=== PATIENT | male | born 1995 | race Caucasian/White ===

== ENCOUNTER 2017-08-13 23:01 | Emergency (ER) | payer SELFPAY ==
[~2017-08-13] VITALS: Ht 177.8 cm; Wt 78.0 kg
[~2017-08-13 23:01] MED LIST: CIPR-9 PO
[2017-08-13 23:40] VITALS: BP 130/90; PULSE 85; RESP 15; TEMP 98.5; O2SAT 96
--- NOTE | 2017-08-14 00:14 | PD ---
HPI Chief Complaint: Psychiatric Symptoms Time Seen by Provider: 23:49 Travel History International Travel<30 days: No Contact w/Intl Traveler<30days: No Traveled to known affect area: No History of Present Illness HPI 22-year-old white male presents to emergency department under Justice act by PD. The patient has a history of HIV, substance abuse and has recently moved to the area one month ago from [place]. Prior to that he had been living in [place] on the [address]. He states that he has had not taken his HIV medicines in the past 8 days. He had been on a alcohol and drug binge and had recently moved out of his home into a senior living house for substance abuse. He was kicked out today after taking an [id number] medication which reportedly was against their policy. The patient allegedly had gone back to his 's house with her child and attempted to hang himself. He states the rope had broken. He also states that he attempted to throw himself out of traffic car had stopped. He had lastly attempted to shoot himself with a shotgun. He states that he had put the gun in his mouth but it was taken away from him by his family. The patient admits to feeling depressed and having suicidal thoughts. His allegedly has also relapsed on methamphetamine. Patient states that he has not been feeling well for the past week. He has had cough, congestion, weakness and general malaise. He has occasional blood-tinged sputum. He does continue to smoke. He also had reportedly been smoking methamphetamine earlier in the week. Denies any fever or chills. No nausea vomiting. No abdominal pain or urinary symptoms. He does not know what his CD4 or viral load is. He does not have a doctor here in town. He states that he had moved to the area one month ago. He had been getting his medicines through his sister who lives in [place]. She had been mailing him his medications. Patient denies any toxic ingestions. No homicidal ideation. [facility] Past Medical History Narrative Medical ADHD, anxiety, depression, HIV positive, substance abuse, orthopedic fractures ADHD: Yes (YOUNGER AGE) Anxiety: Yes Depression: Yes Cancer: Yes (STATES NOT SURE YET WHAT TYPE,RECENT DX) Coronary Artery Disease: Yes (" heart problems as an infant. Heart Murmur. ) Diabetes: No Diminished Hearing: No Immune Disorder: Yes (HIV) Immunizations Current: Yes (school shots utd.) Tetanus Vaccination: < 5 Years Past Surgical History Narrative Surgical Orthopedic surgeries Social History Alcohol Use: Yes Tobacco Use: Yes Substance Use: Yes Allergies-Medications (Allergen,Severity, Reaction): Coded Allergies: buspirone (Unverified Allergy, Severe, Anaphylaxis, 06/05/17) HEART RACES, TURNS BLUE, PASSES OUT iodine (Unverified Allergy, Severe, RASH/WELTS/ANYPHYLAXIS, 06/05/17) lorazepam (Unverified Allergy, Severe, Anaphylaxis, 06/05/17) HEART RACES, TURNS BLUE, PASSES OUT potassium iodide (Unverified Allergy, Severe, RASH/WELTS/ANYPHYLAXIS, 06/05) povidone-iodine (Unverified Allergy, Severe, RASH/WELTS/ANYPHYLAXIS, ) sodium iodide (Unverified Allergy, Severe, RASH/WELTS/ANYPHYLAXIS, 06/05/17 ) sodium iodide (Unverified Allergy, Severe, RASH/WELTS/ANYPHYLAXIS, 06/05/17 ) Reported Meds & Prescriptions Reported Meds & Active Scripts Active Review of Systems General / Constitutional: No: Fever Eyes: No: Visual changes HENT: No: Headaches Cardiovascular: No: Chest Pain or Discomfort Respiratory: Positive: Cough, Shortness of Breath Gastrointestinal: No: Abdominal Pain Genitourinary: No: Dysuria Musculoskeletal: Positive: Myalgias, Weakness, Pain Skin: No Rash Neurologic: Positive: Weakness, No: Paresthesia Psychiatric: Positive: Depression, Suicidal Ideations, Mood Disorder, Substance Abuse, No: Disorder of Thought, Homicidal Ideation Endocrine: No: Polydipsia Hematologic/Lymphatic: No: Easy Bruising Physical Exam Narrative GENERAL: Well-nourished, well-developed patient. SKIN: Warm and dry. HEAD: Normocephalic and atraumatic. EYES: No scleral icterus. No injection or drainage. ENT: No nasal drainage noted. Mucous membranes pink. Airway patent. NECK: Supple, trachea midline. Moves head freely without obvious discomfort. CARDIOVASCULAR: Regular rate and rhythm without murmurs, gallops, or rubs. RESPIRATORY: Breath sounds equal bilaterally. Few forced expiratory wheezes with occasional rhonchi. No accessory muscle use. GASTROINTESTINAL: Abdomen soft, non-tender, nondistended. EXTREMITIES: No cyanosis or edema. BACK: Nontender without obvious deformity. No CVA tenderness. NEURO: Patient is alert and oriented. no sensorimotor deficits. Nonfocal. Normal speech. PSYCH: No delusions. No auditory or visual hallucinations. Data Data Last Documented VS Vital Signs Date Time Temp Pulse Resp B/P (MAP) Pulse Ox O2 Delivery O2 Flow Rate FiO2 08/13/17 23:40 98.5 85 15 130/90 (103) 96 Orders Orders Complete Blood Count With Diff (08/14/17 00:01) Comprehensive Metabolic Panel (08/14/17 00:01) Psych Screen (08/14/17 00:) Drug Screen, Random Urine (08/14/17 00:) Alcohol (Ethanol) (08/14/17 00:01) Salicylates (Aspirin) (08/14/17 00:01) Tylenol (Acetaminophen) (08/14/17 00:01) Chest, Single Ap (08/14/17 00:01) Labs Laboratory Tests Test 08/14/17 00:30 White Blood Count 7.9 TH/MM3 Red Blood Count 4.31 MIL/MM3 Hemoglobin 13.6 GM/DL Hematocrit 39.6 % Mean Corpuscular Volume 91.9 FL Mean Corpuscular Hemoglobin 31.6 PG Mean Corpuscular Hemoglobin Concent 34.4 % Red Cell Distribution Width 13.7 % Platelet Count 225 TH/MM3 Mean Platelet Volume 8.7 FL Neutrophils (%) (Auto) 64.0 % Lymphocytes (%) (Auto) 28.1 % Monocytes (%) (Auto) 6.6 % Eosinophils (%) (Auto) 1.1 % Basophils (%) (Auto) 0.2 % Neutrophils # (Auto) 5.1 TH/MM3 Lymphocytes # (Auto) 2.2 TH/MM3 Monocytes # (Auto) 0.5 TH/MM3 Eosinophils # (Auto) 0.1 TH/MM3 Basophils # (Auto) 0.0 TH/MM3 CBC Comment DIFF FINAL Differential Comment Blood Urea Nitrogen 14 MG/DL Creatinine 0.74 MG/DL Random Glucose 80 MG/DL Total Protein 7.6 GM/DL Albumin 3.8 GM/DL Calcium Level 8.7 MG/DL Alkaline Phosphatase 91 U/L Aspartate Amino Transf (AST/SGOT) 20 U/L Alanine Aminotransferase (ALT/SGPT) 17 U/L Total Bilirubin 0.3 MG/DL Sodium Level 139 MEQ/L Potassium Level 3.8 MEQ/L Chloride Level 106 MEQ/L Carbon Dioxide Level 28.3 MEQ/L Anion Gap 5 MEQ/L Estimat Glomerular Filtration Rate 130 ML/MIN Salicylates Level 2.8 MG/DL Acetaminophen Level LESS THAN 2.0 MCG/ML Ethyl Alcohol Level LESS THAN 3 MG/DL MDM Medical Decision Making Medical Screen Exam Complete: Yes Emergency Medical Condition: Yes Medical Record Reviewed: Yes Interpretation(s) Laboratory Tests Test 08/14/17 00:30 White Blood Count 7.9 TH/MM3 Red Blood Count 4.31 MIL/MM3 Hemoglobin 13.6 GM/DL Hematocrit 39.6 % Mean Corpuscular Volume 91.9 FL Mean Corpuscular Hemoglobin 31.6 PG Mean Corpuscular Hemoglobin Concent 34.4 % Red Cell Distribution Width 13.7 % Platelet Count 225 TH/MM3 Mean Platelet Volume 8.7 FL Neutrophils (%) (Auto) 64.0 % Lymphocytes (%) (Auto) 28.1 % Monocytes (%) (Auto) 6.6 % Eosinophils (%) (Auto) 1.1 % Basophils (%) (Auto) 0.2 % Neutrophils # (Auto) 5.1 TH/MM3 Lymphocytes # (Auto) 2.2 TH/MM3 Monocytes # (Auto) 0.5 TH/MM3 Eosinophils # (Auto) 0.1 TH/MM3 Basophils # (Auto) 0.0 TH/MM3 CBC Comment DIFF FINAL Differential Comment Blood Urea Nitrogen 14 MG/DL Creatinine 0.74 MG/DL Random Glucose 80 MG/DL Total Protein 7.6 GM/DL Albumin 3.8 GM/DL Calcium Level 8.7 MG/DL Alkaline Phosphatase 91 U/L Aspartate Amino Transf (AST/SGOT) 20 U/L Alanine Aminotransferase (ALT/SGPT) 17 U/L Total Bilirubin 0.3 MG/DL Sodium Level 139 MEQ/L Potassium Level 3.8 MEQ/L Chloride Level 106 MEQ/L Carbon Dioxide Level 28.3 MEQ/L Anion Gap 5 MEQ/L Estimat Glomerular Filtration Rate 130 ML/MIN Salicylates Level 2.8 MG/DL Acetaminophen Level LESS THAN 2.0 MCG/ML Ethyl Alcohol Level LESS THAN 3 MG/DL Last 24 hours Impressions Chest X-Ray 08/14/17 0001 Signed Impressions: Service Date/Time: Monday, August 14, 2017 01:05 - CONCLUSION: No acute disease. Eric Montgomery MD Differential Diagnosis MDM: High Differential diagnoses: Schizophrenia, schizoaffective disorder, bipolar, anxiety, depression, adjustment reaction, mood disorder NOS, ODD, depressive disorder NOS, dementia, dementia with agitation, psychosis NOS, substance induced mood disorder, intermittent explosive disorder, Asperger syndrome, infection,electrolyte abnormality, malingering. Narrative Course Mental health screening discussed with the patient. Psychiatric screen ordered. The patient is been medically cleared. This is medical clearance for psychiatric admission, HIV Diagnosis Primary Impression: Medical clearance for psychiatric admission Additional Impression: HIV (human immunodeficiency virus infection) Condition: Stable Louie Young Aug 14, 2017 00:14
--- NOTE | 2017-08-14 00:47 | RADRPT ---
EXAM DATE/TIME: 08/14/2017 01:05 [facility] COMPARISON: No previous studies available for comparison. INDICATIONS : Cough. MEDICAL HISTORY : None. SURGICAL HISTORY : None. ENCOUNTER: Initial ACUITY: 2 weeks PAIN SCORE: 0/10 LOCATION: Bilateral chest FINDINGS: A single view of the chest demonstrates the lungs to be symmetrically aerated without evidence of mas s, infiltrate or effusion. The cardiomediastinal contours are unremarkable. Osseous structures are intact. CONCLUSION: No acute disease. Eric Montgomery MD on August 14, 2017 at 0:45 Board Certified Radiologist. This report was verified electronically.
[2017-08-14 00:57] LABS: AUTOMATED NEUTROPHIL # 5.1 TH/MM3 (1.8-7.7); BASOPHIL % 0.2 % (0.0-2.0); EOSINOPHIL # 0.1 TH/MM3 (0-0.4); EOSINOPHIL % 1.1 % (0.0-4.0); HEMATOCRIT 39.6 % (39.0-51.0); HEMOGLOBIN 13.6 GM/DL (13.0-17.0); LYMPH % 28.1 % (9.0-44.0); LYMPHOCYTE # 2.2 TH/MM3 (1.0-4.8); MEAN CELL VOLUME 91.9 FL (80.0-100.0); MEAN CORPUSCULAR HEMOGLOBIN 31.6 PG (27.0-34.0); MEAN CORPUSCULAR HGB CONC 34.4 % (32.0-36.0); MEAN PLATELET VOLUME 8.7 FL (7.0-11.0); MONO % 6.6 % (0.0-8.0); MONOCYTE # 0.5 TH/MM3 (0-0.9); PLATELET COUNT 225 TH/MM3 (150-450); RED BLOOD COUNT 4.31 MIL/MM3 (4.50-5.90); RED CELL DISTRIBUTION WIDTH 13.7 % (11.6-17.2); WHITE BLOOD COUNT 7.9 TH/MM3 (4.0-11.0)
[2017-08-14 01:13] LABS: ALKALINE PHOSPHATASE 91 U/L (45-117); TOTAL BILIRUBIN ADULT 0.3 MG/DL (0.2-1.0); TOTAL PROTEIN 7.6 GM/DL (6.4-8.2)
[2017-08-14 01:17] LABS: ALBUMIN 3.8 GM/DL (3.4-5.0); ALT (GPT) 17 U/L (12-78); AST (GOT) 20 U/L (15-37); BICARBONATE 28.3 MEQ/L (21.0-32.0); BLOOD UREA NITROGEN 14 MG/DL (7-18); CALCIUM 8.7 MG/DL (8.5-10.1); CHLORIDE 106 MEQ/L (98-107); CREATININE 0.74 MG/DL (0.60-1.30); GLOMERULAR FILTRATION RATE 130 ML/MIN (>89); GLUCOSE,RANDOM 80 MG/DL (74-106); SODIUM (NA) 139 MEQ/L (136-145)
[2017-08-14 01:18] LABS: ACETAMINOPHEN LESS THAN 2.0 MCG/ML (10.0-30.0)
[2017-08-14 08:01] VITALS: BP 131/76; PULSE 75; RESP 16; O2SAT 98
[2017-08-14] MEDS ORDERED: TRIMEQ PO (08:03)
[2017-08-14 18:50] VITALS: BP 131/76; PULSE 75; RESP 16; O2SAT 98
--- NOTE | 2017-08-14 18:55 | PD ---
History of Present Illness Chief Complaint: Psychiatric Symptoms Time Seen by Provider: 18:15 Travel History International Travel<30 Days: No Contact w/Intl Traveler<30days: No Known affected area: No Legal Status Legal Status: Justice Act Justice Act Signed By: Amee Abreu History of Present Illness: History of Present Illness HPI 22-year-old white male with no previous psychiatric history and history of substance use disorder who presents to emergency department under Justice act by PD. The Justice act alleges that the patient threatened to put a gun in his mouth but could not pull the trigger. It also alleges that he wanted to get a hold of the arresting police weapon. The patient did not make any attempt at harming himself. He was monitored here for extended period of time and presented no behavioral concerns and no suicidality. The patient is seen in J pod. awake, alert, oriented.Speech is clear and logical. There is no evidence of any psychosis, no carole and no delusions. There is no objective clinical signs of depression or anxiety. He denies any suicidal or homicidal ideation. He states that last night he took a pill given to him by a peer at his sober living home. He then went to a staff and informed them of this. As per house rules he was released from the program x 72 hours. He states " I told them that because I didn't want to get kicked out of the program. I have done it before. I lied and I was hoping that they would feel sorry for me and let me stay. I don't have a shot gun since I am a felon. I have 2 sons and a and I do not want to kill myself. I know I can get back into the program in 72 hours". Patient is asking to be discharged as he does not want to loose his job and has to be to work tomorrow. His sponsor will pick him up if he is discharged. Telephone call to his , Fany at [phone]. She does not have any concerns for his safety if he were to be discharged. She states " He has a safe place to come home to". She also indicates that he does not own or have acces to any weapons.weapons". PFSH Past Medical History ADHD: Yes (YOUNGER AGE) Anxiety: Yes Depression: Yes Cancer: Yes (STATES NOT SURE YET WHAT TYPE,RECENT DX) Coronary Artery Disease: Yes (" heart problems as an infant. Heart Murmur. ) Diabetes: No Diminished Hearing: No Immune Disorder: Yes (HIV) Immunizations Current: Yes (school shots utd.) Tetanus Vaccination: < 5 Years Psychiatric History Psychiatric History Hx Psychiatric Treatment: States that he was treated inpatient at this facility approximately 4-6 years ago. History of Inpatient Treatment: No Social History . Was living at [facility]. Has 2 children. Works in [employer]. Hx Alcohol Use: Yes Hx Tobacco Use: Yes Hx Substance Use: Yes Substance Use Type: Marijuana Hx of Substance Use Treatment: Yes Family Psychiatric History Negative Allergies-Medications (Allergen,Severity, Reaction): Coded Allergies: buspirone (Unverified Allergy, Severe, Anaphylaxis, 06/05/17) HEART RACES, TURNS BLUE, PASSES OUT iodine (Unverified Allergy, Severe, RASH/WELTS/ANYPHYLAXIS, 06/05/17) lorazepam (Unverified Allergy, Severe, Anaphylaxis, 06/05/17) HEART RACES, TURNS BLUE, PASSES OUT potassium iodide (Unverified Allergy, Severe, RASH/WELTS/ANYPHYLAXIS, 06/05) povidone-iodine (Unverified Allergy, Severe, RASH/WELTS/ANYPHYLAXIS, ) sodium iodide (Unverified Allergy, Severe, RASH/WELTS/ANYPHYLAXIS, 06/05/17 ) sodium iodide (Unverified Allergy, Severe, RASH/WELTS/ANYPHYLAXIS, 06/05/17 ) Reported Meds & Prescriptions Reported Meds & Active Scripts Active Reported [Trimeq] Unknown Dose PO DAILY Review of Systems Except as stated in HPI: all other systems reviewed are Neg Mental Status Examination Appearance: Appropriate Consciousness: Alert Orientation: x4 Motor Activity: Normal gait Speech: Unremarkable Language: Adequate Fund of Knowledge: Adequate Attention and Concentration: Adequate Memory: Unremarkable Mood: Appropriate Affect: Appropriate Thought Process & Associations: Intact Thought Content: Appropriate Hallucination Type: None Delusion Type: None, Bizarre Suicidal Ideation: No Suicidal Plan: No Suicidal Intention: No Homicidal Ideation: No Homicidal Plan: No Homicidal Intention: No Insight: Fair Judgment: Impulsive MDM Medical Decision Making Medical Record Reviewed: Yes Assessment/Plan 22-year-old white male with no previous psychiatric history and history of substance use disorder who presents to emergency department under Justice act by PD. The Justice act alleges that the patient threatened to put a gun in his mouth but could not pull the trigger. It also alleges that he wanted to get a hold of the arresting police weapon. The patient did not make any attempt at harming himself. He was monitored here for extended period of time and presented no behavioral concerns and no suicidality. The patient is seen in J pod. awake, alert, oriented.Speech is clear and logical. There is no evidence of any psychosis, no carole and no delusions. There is no objective clinical signs of depression or anxiety. He denies any suicidal or homicidal ideation. He states that last night he took a pill given to him by a peer at his sober living home. He then went to a staff and informed them of this. As per house rules he was released from the program x 72 hours. He states " I told them that because I didn't want to get kicked out of the program. I have done it before. I lied and I was hoping that they would feel sorry for me and let me stay. I don't have a shot gun since I am a felon. I have 2 sons and a and I do not want to kill myself. I know I can get back into the program in 72 hours". Patient is asking to be discharged as he does not want to loose his job and has to be to work tomorrow. His sponsor will pick him up if he is discharged. Lift BA. Clear psychiatrically for discharge. He is future oriented with adequate protective f actors. He will return to the [facility] in 72 hours. Orders Orders Complete Blood Count With Diff (08/14/17 00:01) Comprehensive Metabolic Panel (08/14/17 00:01) Psych Screen (08/14/17 00:01) Drug Screen, Random Urine (08/14/17 00:01) Alcohol (Ethanol) (08/14/17 00:01) Salicylates (Aspirin) (10/24/17 00:01) Tylenol (Acetaminophen) (08/14/17 00:01) Chest, Single Ap (08/14/17 00:01) Diet Regular Basic (08/14/17 Breakfast) Diet Regular Basic (08/14/17 Lunch) Diet Regular Basic (08/14/17 Dinner) Results Vital Signs Date Time Temp Pulse Resp B/P (MAP) Pulse Ox O2 Delivery O2 Flow Rate FiO2 08/14/17 08:01 75 16 131/76 (94) 98 Room Air 08/13/17 23:40 98.5 85 15 130/90 (103) 96 Laboratory Tests Test 08/14/17 00:30 08/14/17 04:25 White Blood Count 7.9 Red Blood Count 4.31 Hemoglobin 13.6 Hematocrit 39.6 Mean Corpuscular Volume 91.9 Mean Corpuscular Hemoglobin 31.6 Mean Corpuscular Hemoglobin Concent 34.4 Red Cell Distribution Width 13.7 Platelet Count 225 Mean Platelet Volume 8.7 Neutrophils (%) (Auto) 64.0 Lymphocytes (%) (Auto) 28.1 Monocytes (%) (Auto) 6.6 Eosinophils (%) (Auto) 1.1 Basophils (%) (Auto) 0.2 Neutrophils # (Auto) 5.1 Lymphocytes # (Auto) 2.2 Monocytes # (Auto) 0.5 Eosinophils # (Auto) 0.1 Basophils # (Auto) 0.0 CBC Comment DIFF FINAL Differential Comment Blood Urea Nitrogen 14 Creatinine 0.74 Random Glucose 80 Total Protein 7.6 Albumin 3.8 Calcium Level 8.7 Alkaline Phosphatase 91 Aspartate Amino Transf (AST/SGOT) 20 Alanine Aminotransferase (ALT/SGPT) 17 Total Bilirubin 0.3 Sodium Level 139 Potassium Level 3.8 Chloride Level 106 Carbon Dioxide Level 28.3 Anion Gap 5 Estimat Glomerular Filtration Rate 130 Salicylates Level 2.8 Acetaminophen Level LESS THAN 2.0 Ethyl Alcohol Level LESS THAN 3 Urine Opiates Screen NEG Urine Barbiturates Screen NEG Urine Amphetamines Screen NEG Urine Benzodiazepines Screen NEG Urine Cocaine Screen NEG Urine Cannabinoids Screen POS Diagnosis Primary Impression: Adjustment disorder Additional Impression: Substance induced mood disorder Psychiatrically Cleared: Yes Med/ Other Pt Specific Info: No Meds Exist/No RX given Disposition: 01 DISCHARGE HOME Condition: Stable Problem Qualifiers Primary Impression: Adjustment disorder Qualified Codes: F43.25 - Adjustment disorder with mixed disturbance of emotions and conduct Y[place]iko [place] [facility] [place] Aug 14, 2017 18:55
== END 2017-08-14 20:53 | disposition home or self-care (01) ==
LOC: NEPD 23:01 → NEPJ 08-14 20:53
DX: F19.94 Other psychoactive substance use, unspecified with psychoactive substance-induced mood disorder (principal); F43.25 Adjustment disorder with mixed disturbance of emotions and conduct; B20 Human immunodeficiency virus [HIV] disease; R05 Cough; R53.1 Weakness; Z72.0 Tobacco use
CPT/HCPCS: 71010; 80053; 80307; 85025; 99284

== ENCOUNTER 2017-11-08 13:04 | Emergency (ER) | payer SELFPAY ==
[~2017-11-08 13:04] MED LIST changes: -CIPR-9 PO; +TRIMEQ PO
[2017-11-08 13:07] VITALS: BP 150/66; PULSE 99; RESP 20; TEMP 97.7; O2SAT 99
[2017-11-08] MEDS ORDERED: SODIUM CHLOR 0.9% 1000 ML INJ 1,000 ML IV ONE (13:45)
[2017-11-08 13:59] LABS: AUTOMATED NEUTROPHIL # 4.4 TH/MM3 (1.8-7.7); BASOPHIL % 0.2 % (0.0-2.0); EOSINOPHIL # 0.1 TH/MM3 (0-0.4); EOSINOPHIL % 1.2 % (0.0-4.0); HEMATOCRIT 39.3 % (39.0-51.0); HEMOGLOBIN 12.5 GM/DL (13.0-17.0); LYMPH % 17.9 % (9.0-44.0); MEAN CELL VOLUME 88.9 FL (80.0-100.0); MEAN CORPUSCULAR HEMOGLOBIN 28.1 PG (27.0-34.0); MEAN CORPUSCULAR HGB CONC 31.7 % (32.0-36.0); MEAN PLATELET VOLUME 7.9 FL (7.0-11.0); MONO % 5.9 % (0.0-8.0); MONOCYTE # 0.3 TH/MM3 (0-0.9); NEUT % 74.8 % (16.0-70.0); PLATELET COUNT 178 TH/MM3 (150-450); RED BLOOD COUNT 4.43 MIL/MM3 (4.50-5.90); RED CELL DISTRIBUTION WIDTH 12.1 % (11.6-17.2); WHITE BLOOD COUNT 5.8 TH/MM3 (4.0-11.0)
--- NOTE | 2017-11-08 13:59 | PD ---
HPI Chief Complaint: Numbness/Tingling Time Seen by Provider: 13:17 Travel History International Travel<30 days: No Contact w/Intl Traveler<30days: No Traveled to known affect area: No History of Present Illness HPI The patient is a 22-year-old male who presents to the emergency department for numbness and tingling of the upper extremities. The patient notes a one-week history of bilateral upper extremity numbness, states he will awaken in the morning and both of his hands will feel numb. The numbness climbs up the arms all way to the shoulders. He states they will continue to be numb for several minutes, sometimes up to 15-20 minutes and then he can feel the sensation returning, from the shoulders down to the hands. He also notes intermittent numbness of the legs, left greater than right. He denies any neck pain or headache associated with his symptoms. He does have a history of HIV, states he stopped taking medications 7 months ago secondary to financial issues. He is unsure if he is ever been diagnosed with an cathryn defining illness. The patient thinks his last viral load was almost undetectable, however, that was over 7 months ago. He is not currently followed by her primary physician. He denies any known history of neuropathy. He does note his hands feel weak when they are numb, however, when the numbness returns she is able to use his hands without difficulty. He also states he has had 2 episodes of syncope in the last 2 weeks where he will lean over and then wake up on the floor. He denies any trauma from the syncopal episodes and denies any chest pain, shortness of breath, nausea, vomiting, or palpitations. Symptoms are moderate, there are no alleviating or exacerbating factors. He does state he looked up on the Internet, states HIV can cause neuropathy. The patient denies any illicit IV drug use. PFSH Past Medical History ADHD: Yes (YOUNGER AGE) Anxiety: Yes Depression: Yes Cancer: Yes (STATES NOT SURE YET WHAT TYPE,RECENT DX) Coronary Artery Disease: Yes (" heart problems as an infant. Heart Murmur. ) Diabetes: No Diminished Hearing: No Immune Disorder: Yes (HIV) Immunizations Current: Yes (school shots utd.) Social History Alcohol Use: Yes Tobacco Use: Yes (1/2ppd) Substance Use: Yes Allergies-Medications (Allergen,Severity, Reaction): Coded Allergies: buspirone (Unverified Allergy, Severe, Anaphylaxis, 11/08/17) HEART RACES, TURNS BLUE, PASSES OUT iodine (Unverified Allergy, Severe, RASH/WELTS/ANYPHYLAXIS, 11/08/17) lorazepam (Unverified Allergy, Severe, Anaphylaxis, 11/08/17) HEART RACES, TURNS BLUE, PASSES OUT potassium iodide (Unverified Allergy, Severe, RASH/WELTS/ANYPHYLAXIS, 11/08) povidone-iodine (Unverified Allergy, Severe, RASH/WELTS/ANYPHYLAXIS, ) sodium iodide (Unverified Allergy, Severe, RASH/WELTS/ANYPHYLAXIS, 11/08/17 ) sodium iodide (Unverified Allergy, Severe, RASH/WELTS/ANYPHYLAXIS, 11/08/17 ) Reported Meds & Prescriptions Reported Meds & Active Scripts Active Review of Systems General / Constitutional: No: Fever Eyes: No: Visual changes HENT: No: Headaches, Neck Pain Cardiovascular: Positive: Syncope, No: Chest Pain or Discomfort, Palpitations, Irregular Rhythm, Tachycardia Respiratory: No: Shortness of Breath Gastrointestinal: No: Nausea, Vomiting, Abdominal Pain Musculoskeletal: Positive: Weakness Neurologic: Positive: Weakness, Syncope, Paresthesia, Sensory Disturbance Hematologic/Lymphatic: Positive: Other (history of HIV, not currently on medications) Physical Exam Narrative GENERAL: Awake, alert, nontoxic-appearing 22-year-old male who appears his stated age and is in no acute respiratory distress. SKIN: Focused skin assessment warm/dry. Multiple tattoos noted. HEAD: Atraumatic. Normocephalic. EYES: Pupils equal and round. 3 mm bilateral and reactive. ENT: No nasal bleeding or discharge. Mucous membranes pink and moist. NECK: Trachea midline. No JVD. No tenderness of the cervical or paracervical vertebral muscles. CARDIOVASCULAR: Regular rate and rhythm. No murmur appreciated. Heart rate in the 90s. RESPIRATORY: No accessory muscle use. Clear to auscultation. Breath sounds equal bilaterally. GASTROINTESTINAL: Abdomen soft, non-tender, nondistended. No rebound tenderness. MUSCULOSKELETAL: No obvious deformities. No clubbing. No cyanosis. No edema. Positive radial pulses bilateral. [place] strength is 5 out of 5. Flexion of the wrist is 5 out of 5. Extension of the elbows is 5 out of 5. Abduction of the shoulders is 5 out of 5. Shoulder shrug is 5 out of 5. Extension of the knees is 5 out of 5. NEUROLOGICAL: Awake and alert. No obvious cranial nerve deficits. Motor grossly within normal limits. Normal speech. Diminished sensation to soft touch of the anterior aspect of the left leg as well as over the radial aspect of the right arm, however, present upon soft touch over the ulnar and median nerve of the left and right hand. PSYCHIATRIC: Appropriate mood and affect; insight and judgment normal. Data Data Last Documented VS Vital Signs Date Time Temp Pulse Resp B/P (MAP) Pulse Ox O2 Delivery O2 Flow Rate FiO2 11/08/17 15:25 69 16 128/71 (90) 97 Room Air 11/08/17 13:07 97.7 Orders Orders Complete Blood Count With Diff (11/08/17 13:40) Comprehensive Metabolic Panel (11/08/17 13:40) Magnesium (Mg) (11/08/17 13:40) Creatine Kinase (Cpk) (11/08/17 13:40) Troponin I (11/08/17 13:40) Ct Cerv Spine W/O Contrast (11/08/17 ) Ct Brain W/O Iv Contrast(Rout) (11/08/17 ) Sodium Chlor 0.9% 1000 Ml Inj (Ns 1000 M (11/08/17 13:45) Potassium Chloride (Kcl) (11/08/17 14:30) Ketorolac Inj (Toradol Inj) (11/08/17 15:00) Electrocardiogram (11/08/17 13:23) Labs Laboratory Tests Test 11/08/17 13:50 White Blood Count 5.8 TH/MM3 Red Blood Count 4.43 MIL/MM3 Hemoglobin 12.5 GM/DL Hematocrit 39.3 % Mean Corpuscular Volume 88.9 FL Mean Corpuscular Hemoglobin 28.1 PG Mean Corpuscular Hemoglobin Concent 31.7 % Red Cell Distribution Width 12.1 % Platelet Count 178 TH/MM3 Mean Platelet Volume 7.9 FL Neutrophils (%) (Auto) 74.8 % Lymphocytes (%) (Auto) 17.9 % Monocytes (%) (Auto) 5.9 % Eosinophils (%) (Auto) 1.2 % Basophils (%) (Auto) 0.2 % Neutrophils # (Auto) 4.4 TH/MM3 Lymphocytes # (Auto) 1.0 TH/MM3 Monocytes # (Auto) 0.3 TH/MM3 Eosinophils # (Auto) 0.1 TH/MM3 Basophils # (Auto) 0.0 TH/MM3 CBC Comment DIFF FINAL Differential Comment Blood Urea Nitrogen 14 MG/DL Creatinine 0.78 MG/DL Random Glucose 102 MG/DL Total Protein 7.8 GM/DL Albumin 3.5 GM/DL Calcium Level 8.4 MG/DL Magnesium Level 2.0 MG/DL Alkaline Phosphatase 85 U/L Aspartate Amino Transf (AST/SGOT) 25 U/L Alanine Aminotransferase (ALT/SGPT) 18 U/L Total Bilirubin 0.3 MG/DL Sodium Level 138 MEQ/L Potassium Level 3.4 MEQ/L Chloride Level 105 MEQ/L Carbon Dioxide Level 27.2 MEQ/L Anion Gap 6 MEQ/L Estimat Glomerular Filtration Rate 122 ML/MIN Total Creatine Kinase 150 U/L Troponin I LESS THAN 0.02 NG/ML MDM Medical Decision Making Medical Screen Exam Complete: Yes Emergency Medical Condition: Yes Medical Record Reviewed: Yes Interpretation(s) EKG reveals sinus rhythm with a rate 80. RSR prime in V1, incomplete right bundle branch block. Laboratory Tests Test 11/08/17 13:50 White Blood Count 5.8 TH/MM3 Red Blood Count 4.43 MIL/MM3 Hemoglobin 12.5 GM/DL Hematocrit 39.3 % Mean Corpuscular Volume 88.9 FL Mean Corpuscular Hemoglobin 28.1 PG Mean Corpuscular Hemoglobin Concent 31.7 % Red Cell Distribution Width 12.1 % Platelet Count 178 TH/MM3 Mean Platelet Volume 7.9 FL Neutrophils (%) (Auto) 74.8 % Lymphocytes (%) (Auto) 17.9 % Monocytes (%) (Auto) 5.9 % Eosinophils (%) (Auto) 1.2 % Basophils (%) (Auto) 0.2 % Neutrophils # (Auto) 4.4 TH/MM3 Lymphocytes # (Auto) 1.0 TH/MM3 Monocytes # (Auto) 0.3 TH/MM3 Eosinophils # (Auto) 0.1 TH/MM3 Basophils # (Auto) 0.0 TH/MM3 CBC Comment DIFF FINAL Differential Comment Blood Urea Nitrogen 14 MG/DL Creatinine 0.78 MG/DL Random Glucose 102 MG/DL Total Protein 7.8 GM/DL Albumin 3.5 GM/DL Calcium Level 8.4 MG/DL Magnesium Level 2.0 MG/DL Alkaline Phosphatase 85 U/L Aspartate Amino Transf (AST/SGOT) 25 U/L Alanine Aminotransferase (ALT/SGPT) 18 U/L Total Bilirubin 0.3 MG/DL Sodium Level 138 MEQ/L Potassium Level 3.4 MEQ/L Chloride Level 105 MEQ/L Carbon Dioxide Level 27.2 MEQ/L Anion Gap 6 MEQ/L Estimat Glomerular Filtration Rate 122 ML/MIN Total Creatine Kinase 150 U/L Troponin I LESS THAN 0.02 NG/ML Last Impressions Head CT 11/08/17 0000 Signed Impressions: Service Date/Time: October 14:18 - CONCLUSION: Stable noncontrast head CT. No acute abnormality is identified. Kd Andujar MD Cervical Spine CT 11/08/17 0000 Signed Impressions: Service Date/Time: October 14:18 - CONCLUSION: 1. Small central disc protrusion at C5-6. 2. Broad-based disc bulge at C6-7. 3. No acute fracture or destructive lesion identified. Jayesh Edmonds MD Differential Diagnosis Differential diagnosis includes neuropathy, HIV neuropathy, hypokalemia, hyperkalemia, hypocalcemia, hypercalcemia, cervical radiculopathy, Guillain [place] Syndrome, peripheral neuropathy, syringomyelia. Narrative Course IV was established, labs are drawn and sent, and the patient was placed on cardiac telemetry monitoring and continuous pulse oximetry monitoring. EKG was ordered and interpreted. CT the brain and cervical spine was ordered. Electrolytes were sent to lab. The patient's white count was normal at 5.8. Potassium is minimally low at 3.4, this was replaced orally. CT of the brain is unremarkable. CT the cervical spine shows a small central disc protrusion, do not believe this is the cause of patient's symptoms. He is advised to follow up at the [facility] and may need referrals to neurology and/or infectious disease for further evaluation. His neuropathy could be secondary to the previous antivirals he was taken versus HIV neuropathy. I do not believe this is Guillain [place]. Patient will be prescribed tramadol as well as Neurontin. Diagnosis Primary Impression: Neuropathy Referrals: [facility] Patient Instructions: General Instructions Additional Instructions: Medications as directed. Please provide the patient a copy of his CT results and lab results at discharge. Follow-up with the clinic, he may benefit from referral to neurology and/or infectious disease. Scripts Tramadol (Tramadol) 50 Mg Tab 50 MG PO Q6H Y for PAIN, #20 TAB 0 Refills Prov: Jonatan Easton MD 11/08/17 Gabapentin (Neurontin) 100 Mg Cap 100 MG PO TID, #90 CAP 0 Refills Prov: Jonatan Easton MD 11/08/17 Disposition: 01 DISCHARGE HOME Condition: Stable Jonatan Easton MD Nov 08, 2017 13:59
[2017-11-08 14:00] VITALS: BP 122/66; PULSE 68; RESP 16; O2SAT 99
[2017-11-08 14:07] LABS: CHLORIDE 105 MEQ/L (98-107); SODIUM (NA) 138 MEQ/L (136-145)
[2017-11-08 14:10] LABS: CALCIUM 8.4 MG/DL (8.5-10.1)
[2017-11-08 14:11] LABS: ALBUMIN 3.5 GM/DL (3.4-5.0); BICARBONATE 27.2 MEQ/L (21.0-32.0); BLOOD UREA NITROGEN 14 MG/DL (7-18); GLUCOSE,RANDOM 102 MG/DL (74-106)
[2017-11-08 14:14] LABS: ALT (GPT) 18 U/L (12-78); AST (GOT) 25 U/L (15-37); CREATININE 0.78 MG/DL (0.60-1.30); GLOMERULAR FILTRATION RATE 122 ML/MIN (>89)
[2017-11-08 14:15] LABS: TOTAL BILIRUBIN ADULT 0.3 MG/DL (0.2-1.0); TOTAL PROTEIN 7.8 GM/DL (6.4-8.2)
[2017-11-08 14:17] LABS: ALKALINE PHOSPHATASE 85 U/L (45-117)
[2017-11-08 14:19] LABS: TROPONIN I LESS THAN 0.02 NG/ML (0.02-0.05)
[2017-11-08] MEDS ORDERED: POTASSIUM CHLORIDE 20 MEQ CONTROLLED RELEASE TAB PO ONE (14:30)
--- NOTE | 2017-11-08 14:43 | RADRPT ---
EXAM DATE/TIME: 11/08/2017 14:18 [facility] COMPARISON: CT BRAIN W/O CONTRAST, July 08, 2014, 2:39. INDICATIONS : Syncopal episode. Left arm weakness and numbness. RADIATION DOSE: 61.74 CTDIvol (mGy) MEDICAL HISTORY : HIV. SURGICAL HISTORY : None. ENCOUNTER: Initial ACUITY: 2 days PAIN SCALE: 5/10 LOCATION: cranial TECHNIQUE: Multiple contiguous axial images were obtained of the head. Using automated exposure control and adj ustment of the mA and/or kV according to patient size, radiation dose was kept as low as reasonably a chievable to obtain optimal diagnostic quality images. DICOM format image data is available electro nically for review and comparison. FINDINGS: CEREBRUM: The ventricles are normal. No evidence of midline shift, mass lesion, hemorrhage or acute infarction . No extra-axial fluid collections are seen. POSTERIOR FOSSA: The cerebellum and brainstem are intact. The 4th ventricle is midline. The cerebellopontine angle i s unremarkable. EXTRACRANIAL: Visualized sinuses are clear. SKULL: The calvaria is intact. No evidence of skull fracture. CONCLUSION: Stable noncontrast head CT. No acute abnormality is identified. Kd Andujar MD on November 08, 2017 at 14:34 Board Certified Radiologist. This report was verified electronically.
[2017-11-08] MEDS ORDERED: KETOROLAC TROMETHAMINE 30 MG/ML (IVP) VIAL IV PUSH ONE (15:00)
[2017-11-08 15:25] VITALS: BP 128/71; PULSE 69; RESP 16; O2SAT 97
--- NOTE | 2017-11-08 15:38 | RADRPT ---
EXAM DATE/TIME: 11/08/2017 14:18 [facility] COMPARISON: CT BRAIN W/O CONTRAST, July 08, 2014, 2:39. INDICATIONS : Syncopal episode. Left arm weakness and numbness. RADIATION DOSE: 26.36 CTDIvol (mGy) MEDICAL HISTORY : HIV. SURGICAL HISTORY : None. ENCOUNTER: Initial ACUITY: 2 days PAIN SCALE: 8/10 LOCATION: neck TECHNIQUE: Volumetric scanning of the cervical spine was performed. Multiplanar reconstructions in the sagittal, coronal and oblique axial planes were performed. Using automated exposure control and adjustment o f the mA and/or kV according to patient size, radiation dose was kept as low as reasonably achievable to obtain optimal diagnostic quality images. DICOM format image data is available electronically f or review and comparison. FINDINGS: VERTEBRAE: Normal vertebral body height. ALIGNMENT: No evidence of subluxation. C2-C3: The bony spinal canal is normal in size. No evidence of disc bulge or herniation. The neural forami na are bilaterally patent. C3-C4: The bony spinal canal is normal in size. No evidence of disc bulge or herniation. The neural forami na are bilaterally patent. C4-C5: The bony spinal canal is normal in size. No evidence of disc bulge or herniation. The neural forami na are bilaterally patent. C5-C6: The examination demonstrates a central disc protrusion. This effaces the ventral thecal sac and just abuts the ventral aspect of the cord. The foramina are adequate. The facet joints are intact. C6-C7: There is a small broad-based disc bulge. The thecal space and foramina are adequate. Facet joints are intact. C7-T1: The bony spinal canal is normal in size. No evidence of disc bulge or herniation. The neural forami na are bilaterally patent. CONCLUSION: 1. Small central disc protrusion at C5-6. 2. Broad-based disc bulge at C6-7. 3. No acute fracture or destructive lesion identified. Jayesh Edmonds MD on November 08, 2017 at 15:33 Board Certified Radiologist. This report was verified electronically.
[2017-11-08 15:53] VITALS: RESP 18
[2017-11-08] MEDS ORDERED: NEUR100C PO (15:56)
[2017-11-08] MEDS ORDERED: TRAM50TA PO (15:56)
[2017-11-08] MEDS ORDERED: traMADol HCL 50 MG TAB PO ONE (16:00)
--- NOTE | 2017-11-09 08:11 | EKG ---
Date Performed: 11/08/2017 Time Performed: 13:23:42 PTAGE: 22 years EKG: Sinus rhythm INCOMPLETE RIGHT BUNDLE BRANCH BLOCK BORDERLINE ECG No significant change from prior electrocardiogr am. PREVIOUS TRACING : 07/02/2013 22.10 DOCTOR: Farhad Dobbs Interpretating Date/Time 11/09/2017 08:09:38
== END 2017-11-08 16:35 | disposition home or self-care (01) ==
LOC: PHED 13:04
DX: G62.9 Polyneuropathy, unspecified (principal); F17.200 Nicotine dependence, unspecified, uncomplicated; I45.10 Unspecified right bundle-branch block; R55 Syncope and collapse; Z21 Asymptomatic human immunodeficiency virus [HIV] infection status
CPT/HCPCS: 70450; 72125; 80053; 82550; 83735; 84484; 85025; 93005; 99285; J1885; J7030

== ENCOUNTER 2018-02-16 13:29 | Emergency (ER) | payer MEDICAID ==
[~2018-02-16] VITALS: Ht 188 cm; Wt 81.2 kg
[~2018-02-16 13:29] MED LIST changes: +NEUR100C PO; +TRAM50TA PO; -TRIMEQ PO
[2018-02-16 13:34] VITALS: BP 152/66; PULSE 86; RESP 18; TEMP 97.7; O2SAT 98
[2018-02-16 13:52] LABS: BILIRUBIN, URINE NEG (NEG); BLOOD, URINE NEG (NEG); GLUCOSE,URINE NEG (NEG); KETONE, URINE NEG (NEG); NITRITE,URINE NEG (NEG); PH, URINE 7.5 (5.0-8.5); URINE COLOR YELLOW (YELLW/STRAW); URINE LEUKOCYTE ESTERASE NEG (NEG)
--- NOTE | 2018-02-16 13:54 | PD ---
HPI . Flank pain Chief Complaint: Flank/Kidney Pain Time Seen by Provider: 13:43 Travel History International Travel<30 days: Yes Contact w/Intl Traveler<30days: Yes Name of Country Traveled to: [place], [place], [place] Traveled to known affect area: No History of Present Illness HPI Patient presents with a chief complaint of right flank pain. Onset was about 2 days ago. He also has a rash. In addition, he complains with dysuria. Patient reports that he [place] a cruise ship and that he did not know that he was not supposed to drink tap water. He also has used the hot tub on the ship. He states that he use the hot tub the first day or 2 [address] the ship. He did not develop a rash until several days later. He states that the rash started yesterday in the right lower quadrant and has spread to his right flank. He describes it as burning and states that it is severe. Other than the possible association with drinking the water on the ship and sitting in the hot tub on the ship, he knows of no modifying factors. His pain is not exacerbated by movement. PFSH Past Medical History ADHD: Yes (YOUNGER AGE) Anxiety: Yes Depression: Yes Cancer: Yes (STATES NOT SURE YET WHAT TYPE,RECENT DX) Coronary Artery Disease: Yes (" heart problems as an . Heart Murmur. ) Diabetes: No Diminished Hearing: No Immune Disorder: Yes (HIV) Immunizations Current: Yes (school shots utd.) ?: Not Social History Alcohol Use: Yes Tobacco Use: Yes (1/2ppd) Substance Use: Yes Allergies-Medications (Allergen,Severity, Reaction): Coded Allergies: buspirone (Verified Allergy, Severe, Anaphylaxis, 02/16/18) HEART RACES, TURNS BLUE, PASSES OUT iodine (Verified Allergy, Severe, RASH/WELTS/ANYPHYLAXIS, 02/16/18) lorazepam (Verified Allergy, Severe, Anaphylaxis, 02/16/18) HEART RACES, TURNS BLUE, PASSES OUT potassium iodide (Verified Allergy, Severe, RASH/WELTS/ANYPHYLAXIS, ) povidone-iodine (Verified Allergy, Severe, RASH/WELTS/ANYPHYLAXIS, 02/16/18 ) sodium iodide (Verified Allergy, Severe, RASH/WELTS/ANYPHYLAXIS, 02/16/18) sodium iodide (Verified Allergy, Severe, RASH/WELTS/ANYPHYLAXIS, 02/16/18) Reported Meds & Prescriptions Reported Meds & Active Scripts Active No Active Prescriptions or Reported Medications Review of Systems Except as stated in HPI: all other systems reviewed are Neg General / Constitutional: No: Fever, Chills Genitourinary: Positive: Dysuria, Flank Pain Skin: Positive Rash Physical Exam Narrative GENERAL: Awake and alert. He does look distressed. SKIN: Warm and dry. He has a rash on the right flank around to the right suprapubic area. It is a scattered, irregular, red, raised rash. It appears to be in 1 dermatome. It is definitely all on the right. HEAD: Normocephalic/atraumatic. EYES: Pupils are equal. Extraocular movements are intact. NECK: Normal range of motion. CARDIOVASCULAR: Regular rate and rhythm. RESPIRATORY: Nonlabored respirations. MUSCULOSKELETAL: Atraumatic. NEUROLOGICAL: Nonfocal. PSYCHIATRIC: Appropriate mood and affect. Data Data Last Documented VS Vital Signs Date Time Temp Pulse Resp B/P (MAP) Pulse Ox O2 Delivery O2 Flow Rate FiO2 02/16/18 13:34 97.7 86 18 152/66 (94) 98 Orders Orders Urinalysis - C+S If Indicated (02/16/18 13:34) Ct Abd/Pel W/O Iv Contrast (02/16/18 13:48) Ketorolac Inj (Toradol Inj) (02/16/18 14:00) Ondansetron Inj (Zofran Inj) (02/16/18 14:00) Sodium Chloride 0.9% Flush (Ns Flush) (02/16/18 14:00) Morphine Inj (Morphine Inj) (02/16/18 14:00) Hydromorphone Pf Inj (Dilaudid Pf Inj) (02/16/18 14:30) Labs Laboratory Tests Test 02/16/18 12:45 Urine Collection Type CLEAN CATCH Urine Color YELLOW Urine Turbidity CLEAR Urine pH 7.5 Urine Specific [place] 1.015 Urine Protein NEG mg/dL Urine Glucose (UA) NEG mg/dL Urine Ketones NEG mg/dL Urine Occult Blood NEG Urine Nitrite NEG Urine Bilirubin NEG Urine Urobilinogen 0.2 MG/DL Urine Leukocyte Esterase NEG Urine RBC 0-3 /hpf Urine Squamous Epithelial Cells 0-5 /hpf Urine Amorphous Sediment MOD Microscopic Urinalysis Comment CULT NOT INDICATED Urine Collection Time 12:45 MDM Medical Decision Making Medical Screen Exam Complete: Yes Emergency Medical Condition: Yes Differential Diagnosis Differential diagnosis of flank pain includes but is not limited to kidney stone , pyelonephritis, musculoskeletal pain, PE Narrative Course This patient presents with chief complaint of right flank pain associated with dysuria. He also has a rash in the same area that is suspicious for shingles. I will start an IV and give him IV morphine and Zofran. A kidney stone workup will be done including a UA and a CT. UA is negative. CT shows no ureteral stones. He does have scattered bilateral tiny renal stones but no ureteral stones. I really think that this man has the shingles. The rash starts in the right flank area and goes around to the right groin and to the right scrotal area. He is complaining with intense dysuria and urgency. I will discharge him to home with prescriptions for Famvir, Percocet and Pyridium. Diagnosis Primary Impression: Right flank pain Additional Impression: Shingles Qualified Codes: B02.9 - Zoster without complications Patient Instructions: General Instructions, Shingles (DC) Med/Other Pt SpecificInfo: Prescription(s) given Scripts Phenazopyridine (Pyridium) 100 Mg Tab 200 MG PO Q8H Y for DYSURIA, #20 TAB 0 Refills Prov: Kiara Pereira MD 02/16/18 Oxycodone-Acetaminophen (Percocet) 5-325 mg Tab 1 TAB PO Q4H Y for PAIN, #12 TAB 0 Refills Prov: Kiara Pereira MD 02/16/18 Famciclovir (Famciclovir) 500 Mg Tab 500 MG PO TID for Mgmt Viral Infection for 10 Days, TAB 0 Refills Prov: Kiara Pereira MD 02/16/18 Disposition: 01 DISCHARGE HOME Condition: Stable Kiara Pereira MD Feb 16, 2018 13:54
[2018-02-16] MEDS ORDERED: MORPHINE SULFATE 2 MG/ML SYRINGE IV PUSH ONE (14:00)
[2018-02-16] MEDS ORDERED: ONDANSETRON HCL 4 MG/2 ML VIAL IVP ONE (14:00)
[2018-02-16] MEDS ORDERED: SODIUM CHLORIDE 0.9% FLUSH 10 ML FLUSH IVF PRN (14:00)
[2018-02-16] MEDS ORDERED: KETOROLAC TROMETHAMINE 30 MG/ML (IVP) VIAL IVP ONE (14:00)
[2018-02-16 14:02] LABS: AMORPHOUS SEDIMENT, URINE MOD; RBC, URINE 0-3 /hpf (0-3); SQUAMOUS EPITHELIAL CELL URINE 0-5 /hpf (0-5)
[2018-02-16] MEDS ORDERED: HYDROmorphone HCL PF 2 MG/ML VIAL IV PUSH ONE (14:30)
--- NOTE | 2018-02-16 14:55 | RADRPT ---
EXAM DATE/TIME: 02/16/2018 14:14 [facility] COMPARISON: No previous studies available for comparison. INDICATIONS : Right flank pain. ORAL CONTRAST: No oral contrast ingested. RADIATION DOSE: 5.31 CTDIvol (mGy) MEDICAL HISTORY : Renal calculi. SURGICAL HISTORY : Laser to removed kidney stones ENCOUNTER: Initial ACUITY: 1 day PAIN SCALE: 10/10 LOCATION: Right flank TECHNIQUE: Volumetric scanning of the abdomen and pelvis was performed. Using automated exposure control and ad justment of the mA and/or kV according to patient size, radiation dose was kept as low as reasonably achievable to obtain optimal diagnostic quality images. DICOM format image data is available electro nically for review and comparison. FINDINGS: LOWER LUNGS: The visualized lower lungs are clear. LIVER: Homogeneous density without lesion. There is no dilation of the biliary tree. No calcified gallston es. SPLEEN: Normal size without lesion. PANCREAS: Within normal limits. KIDNEYS: There are a few tiny nonobstructing renal stones seen bilaterally. The largest stone is seen at the i nferior left collecting system measuring 4 mm. The other stones measure 1-2 mm. No hydronephrosis is seen. The ureters are normal. ADRENAL GLANDS: Within normal limits. VASCULAR: There is no aortic aneurysm. BOWEL/MESENTERY: The stomach, small bowel, and colon demonstrate no acute abnormality. There is no free intraperitone al air or fluid. The appendix is not seen. Significant inflammatory change is not seen. ABDOMINAL WALL: Within normal limits. RETROPERITONEUM: There is no lymphadenopathy. BLADDER: No wall thickening or mass. REPRODUCTIVE: Within normal limits. INGUINAL: There is no lymphadenopathy or hernia. MUSCULOSKELETAL: Within normal limits for patient age. CONCLUSION: Tiny nonobstructing renal stones. Kd Jefferson MD on February 16, 2018 at 14:49 Board Certified Radiologist. This report was verified electronically.
[2018-02-16] MEDS ORDERED: FAMC500T PO (15:05)
[2018-02-16] MEDS ORDERED: PHEN0.4T PO (15:05)
[2018-02-16] MEDS ORDERED: PERC5TAB12 PO (15:05)
[2018-02-17] MEDS ORDERED: PERC7.5T13 PO (01:13)
[2018-02-17] MEDS ORDERED: PROC10TA PO (01:13)
[2018-02-17] MEDS ORDERED: IBUP1TAB7 PO (01:13)
== END 2018-02-16 15:18 | disposition home or self-care (01) ==
LOC: PHED 13:29
DX: R10.9 Unspecified abdominal pain (principal); B02.9 Zoster without complications; F32.9 Major depressive disorder, single episode, unspecified; F41.9 Anxiety disorder, unspecified; I25.10 Atherosclerotic heart disease of native coronary artery without angina pectoris; B20 Human immunodeficiency virus [HIV] disease; C80.1 Malignant (primary) neoplasm, unspecified; F17.200 Nicotine dependence, unspecified, uncomplicated
CPT/HCPCS: 74176; 81001; 96374; 96375; 99284; J1170; J1885; J2270; J2405

== ENCOUNTER 2018-02-16 22:18 | Emergency (ER) | payer MEDICAID ==
[~2018-02-16] VITALS: Ht 188 cm; Wt 82.7 kg
[~2018-02-16 22:18] MED LIST changes: +FAMC500T PO; +PERC5TAB12 PO; +PHEN0.4T PO
[2018-02-16 22:23] VITALS: BP 142/63; PULSE 83; RESP 18; TEMP 98.3; O2SAT 99
[2018-02-16] MEDS ORDERED: SODIUM CHLOR 0.9% 1000 ML INJ 1,000 ML IV SCH ×2 (23:16→23:51)
--- NOTE | 2018-02-16 23:16 | PD ---
HPI Chief Complaint: Abdominal Pain Time Seen by Provider: 23:00 Travel History International Travel<30 days: Yes Contact w/Intl Traveler<30days: Yes Name of Country Traveled to: [place] Traveled to known affect area: No History of Present Illness HPI The patient is a 22-year-old male that was seen a few hours ago here in the emergency department for shingles. He states he went home but an hour ago passed some bright red bloody stool. He denies any syncopal or near syncopal spells. He has right lower quadrant abdominal pain. The abdominal pain is sharp and an 8/10. He denies any fever. He was on a cruise ship in 1 to places in [place] on some foreign countries. The patient is HIV positive and states that he does not know what his T4 level list, he is not sought treatment since his insurance ran out 6 months ago. When he came in several hours ago they did a urine which was normal and a CT abdomen/pelvis without IV contrast which was essentially normal except for tiny nonobstructing renal stones. PFSH Past Medical History ADHD: Yes (YOUNGER AGE) Anxiety: Yes Depression: Yes Cancer: Yes (STATES NOT SURE YET WHAT TYPE,RECENT DX) Coronary Artery Disease: Yes (" heart problems as an . Heart Murmur. ) Diabetes: No Diminished Hearing: No Immune Disorder: Yes (HIV) Medical other: Yes (shingles) Immunizations Current: Yes (school shots utd.) ?: Not Social History Alcohol Use: No Tobacco Use: Yes (1 PPD) Substance Use: No Allergies-Medications (Allergen,Severity, Reaction): Coded Allergies: buspirone (Verified Allergy, Severe, Anaphylaxis, 02/16/18) HEART RACES, TURNS BLUE, PASSES OUT iodine (Verified Allergy, Severe, RASH/WELTS/ANYPHYLAXIS, 02/16/18) lorazepam (Verified Allergy, Severe, Anaphylaxis, 02/16/18) HEART RACES, TURNS BLUE, PASSES OUT potassium iodide (Verified Allergy, Severe, RASH/WELTS/ANYPHYLAXIS, ) povidone-iodine (Verified Allergy, Severe, RASH/WELTS/ANYPHYLAXIS, 02/16/18 ) sodium iodide (Verified Allergy, Severe, RASH/WELTS/ANYPHYLAXIS, 02/16/18) sodium iodide (Verified Allergy, Severe, RASH/WELTS/ANYPHYLAXIS, 02/16/18) Reported Meds & Prescriptions Reported Meds & Active Scripts Active Pyridium (Phenazopyridine HCl) 100 Mg Tab 200 Mg PO Q8H PRN Percocet (Oxycodone-Acetaminophen) 5-325 mg Tab 1 Tab PO Q4H PRN Famciclovir 500 Mg Tab 500 Mg PO TID 10 Days Review of Systems Except as stated in HPI: all other systems reviewed are Neg Physical Exam Narrative GENERAL: The patient is alert, oriented 3 in moderate apparent distress with his abdominal discomfort. His vital signs show blood pressure 142/63 but are otherwise are normal. SKIN: Focused skin assessment warm/dry. There is an erythematous, papular rash in a dermatome only on the right side of the pelvis consistent with herpes zoster. HEAD: Atraumatic. Normocephalic. EYES: Pupils equal and round. No scleral icterus. No injection or drainage. ENT: No nasal bleeding or discharge. Mucous membranes pink and moist. NECK: Trachea midline. No JVD. CARDIOVASCULAR: Regular rate and rhythm. No murmur appreciated. RESPIRATORY: No accessory muscle use. Clear to auscultation. Breath sounds equal bilaterally. GASTROINTESTINAL: Abdomen soft, with tenderness to direct palpation in the right lower quadrant, nondistended. Hepatic and splenic margins not palpable. No guarding or rebound is present. MUSCULOSKELETAL: No obvious deformities. No clubbing. No cyanosis. No edema. NEUROLOGICAL: Awake and alert. No obvious cranial nerve deficits. Motor grossly within normal limits. Normal speech. PSYCHIATRIC: Appropriate mood and affect; insight and judgment normal. Data Data Last Documented VS Vital Signs Date Time Temp Pulse Resp B/P (MAP) Pulse Ox O2 Delivery O2 Flow Rate FiO2 02/17/18 00:08 68 18 118/60 (79) 99 Room Air 02/16/18 22:23 98.3 Orders Orders Complete Blood Count With Diff (02/16/18 23:16) Comprehensive Metabolic Panel (02/16/18 23:16) Lipase (02/16/18 23:16) Urinalysis - C+S If Indicated (02/16/18 23:16) Iv Access Insert/Monitor (02/16/18 23:16) Ecg Monitoring (02/16/18 23:16) Oximetry (02/16/18 23:16) Morphine Inj (Morphine Inj) (02/16/18 23:30) Ondansetron Inj (Zofran Inj) (02/16/18 23:30) Sodium Chlor 0.9% 1000 Ml Inj (Ns 1000 M (02/16/18 23:16) Sodium Chloride 0.9% Flush (Ns Flush) (02/16/18 23:30) Morphine Inj (Morphine Inj) (02/17/18 00:00) Ondansetron Inj (Zofran Inj) (02/17/18 00:00) Sodium Chlor 0.9% 1000 Ml Inj (Ns 1000 M (02/16/18 23:51) Labs Laboratory Tests Test 02/16/18 23:40 White Blood Count 4.1 TH/MM3 Red Blood Count 4.49 MIL/MM3 Hemoglobin 12.9 GM/DL Hematocrit 38.4 % Mean Corpuscular Volume 85.6 FL Mean Corpuscular Hemoglobin 28.8 PG Mean Corpuscular Hemoglobin Concent 33.7 % Red Cell Distribution Width 13.0 % Platelet Count 168 TH/MM3 Mean Platelet Volume 7.7 FL Neutrophils (%) (Auto) 51.7 % Lymphocytes (%) (Auto) 34.3 % Monocytes (%) (Auto) 9.6 % Eosinophils (%) (Auto) 2.8 % Basophils (%) (Auto) 1.6 % Neutrophils # (Auto) 2.1 TH/MM3 Lymphocytes # (Auto) 1.4 TH/MM3 Monocytes # (Auto) 0.4 TH/MM3 Eosinophils # (Auto) 0.1 TH/MM3 Basophils # (Auto) 0.1 TH/MM3 CBC Comment DIFF FINAL Differential Comment Urine Color YELLOW Urine Turbidity CLEAR Urine pH 6.0 Urine Specific [place] GREATER/EQUAL 1.030 Urine Protein TRACE mg/dL Urine Glucose (UA) NEG mg/dL Urine Ketones NEG mg/dL Urine Occult Blood TRACE Urine Nitrite NEG Urine Bilirubin NEG Urine Urobilinogen 0.2 MG/DL Urine Leukocyte Esterase NEG Urine RBC 0-3 /hpf Urine WBC 0-2 /hpf Urine Squamous Epithelial Cells 0-5 /hpf Urine Calcium Oxalate Crystals FEW /hpf Microscopic Urinalysis Comment CULT NOT INDICATED Blood Urea Nitrogen 21 MG/DL Creatinine 0.89 MG/DL Random Glucose 94 MG/DL Total Protein 8.1 GM/DL Albumin 3.5 GM/DL Calcium Level 8.7 MG/DL Alkaline Phosphatase 89 U/L Aspartate Amino Transf (AST/SGOT) 24 U/L Alanine Aminotransferase (ALT/SGPT) 18 U/L Total Bilirubin 0.2 MG/DL Sodium Level 137 MEQ/L Potassium Level 3.9 MEQ/L Chloride Level 106 MEQ/L Carbon Dioxide Level 28.2 MEQ/L Anion Gap 3 MEQ/L Estimat Glomerular Filtration Rate 105 ML/MIN Lipase 123 U/L MDM Medical Decision Making Medical Screen Exam Complete: Yes Emergency Medical Condition: Yes Medical Record Reviewed: Yes Interpretation(s) The CBC shows a hemoglobin of 12.9 and hematocrit of 38.4 but is otherwise normal. The complete metabolic profile shows a BUN of 21 but is otherwise normal. The lipase is normal. The urinalysis shows specific gravity 1.030, trace blood and few calcium oxalate crystals but is otherwise normal. Differential Diagnosis Urinary stone, herpes zoster, appendicitis-unlikely, abdominal pain etiology undetermined Narrative Course The patient has abdominal pain etiology undetermined. He does have calcium oxalate in the urine and some small kidney stones seen on the CT but the kidney stones were not obstructing. His pain is sharp and an 8/10. The patient was offered admission for intractable abdominal pain but he states that today is his son's first birthday and does not want to miss it. Plan: He will given Percocet 7.5 prescription #15 and prochlorperazine and Motrin 800 mg 3 times daily. Additional Instructions: As we discussed, do not drink alcohol or drive on the Percocet or prochlorperazine. These are strong pain medicines and the same pain medicines that we would treat kidney stones with. It is possible that you may have had a kidney stone come down since the last CAT scan done earlier yesterday. Follow -up next week with her primary care physician or, if worse, return to the emergency department. Med/Other Pt SpecificInfo: Prescription(s) given Scripts Ibuprofen (Ibuprofen) 800 Mg Tab 800 MG PO TID for Arthritis Pain, #30 TAB 0 Refills Prov: Kirk Traore MD 02/17/18 Oxycodone-Acetaminophen (Percocet) 7.5-325 mg Tab 1 TAB PO Q4H Y for PAIN, #15 TAB 0 Refills Prov: Kirk Traore MD 02/17/18 Prochlorperazine Maleate (Prochlorperazine Maleate) 10 Mg Tab 10 MG PO Q6H Y for NAUSEA OR VOMITING, #21 TAB 0 Refills Prov: Kirk Traore MD 02/17/18 Disposition: 01 DISCHARGE HOME Condition: Stable Kirk Traore MD Feb 16, 2018 23:16
[2018-02-16] MEDS ORDERED: MORPHINE SULFATE 4 MG/ML INJ IV PUSH ONE (23:30)
[2018-02-16] MEDS ORDERED: ONDANSETRON HCL 4 MG/2 ML VIAL IVP ONE (23:30)
[2018-02-16] MEDS ORDERED: SODIUM CHLORIDE 0.9% FLUSH 10 ML FLUSH IV FLUSH PRN (23:30)
[2018-02-16 23:45] VITALS: O2SAT 98
[2018-02-17] MEDS ORDERED: ONDANSETRON HCL 4 MG/2 ML VIAL IVP ONE
[2018-02-17 00:01] LABS: BILIRUBIN, URINE NEG (NEG); BLOOD, URINE TRACE (NEG); GLUCOSE,URINE NEG (NEG); KETONE, URINE NEG (NEG); NITRITE,URINE NEG (NEG); URINE COLOR YELLOW (YELLW/STRAW); URINE LEUKOCYTE ESTERASE NEG (NEG)
[2018-02-17 00:02] LABS: AUTOMATED NEUTROPHIL # 2.1 TH/MM3 (1.8-7.7); BASOPHIL # 0.1 TH/MM3 (0-0.2); BASOPHIL % 1.6 % (0.0-2.0); EOSINOPHIL # 0.1 TH/MM3 (0-0.4); EOSINOPHIL % 2.8 % (0.0-4.0); HEMATOCRIT 38.4 % (39.0-51.0); HEMOGLOBIN 12.9 GM/DL (13.0-17.0); LYMPH % 34.3 % (9.0-44.0); LYMPHOCYTE # 1.4 TH/MM3 (1.0-4.8); MEAN CELL VOLUME 85.6 FL (80.0-100.0); MEAN CORPUSCULAR HEMOGLOBIN 28.8 PG (27.0-34.0); MEAN CORPUSCULAR HGB CONC 33.7 % (32.0-36.0); MEAN PLATELET VOLUME 7.7 FL (7.0-11.0); MONO % 9.6 % (0.0-8.0); MONOCYTE # 0.4 TH/MM3 (0-0.9); NEUT % 51.7 % (16.0-70.0); PLATELET COUNT 168 TH/MM3 (150-450); RED BLOOD COUNT 4.49 MIL/MM3 (4.50-5.90); WHITE BLOOD COUNT 4.1 TH/MM3 (4.0-11.0)
[2018-02-17 00:08] VITALS: BP 118/60; PULSE 68; RESP 18; O2SAT 99
[2018-02-17 00:19] LABS: CHLORIDE 106 MEQ/L (98-107); SODIUM (NA) 137 MEQ/L (136-145)
[2018-02-17 00:22] LABS: CALCIUM 8.7 MG/DL (8.5-10.1)
[2018-02-17 00:23] LABS: ALBUMIN 3.5 GM/DL (3.4-5.0); BICARBONATE 28.2 MEQ/L (21.0-32.0); BLOOD UREA NITROGEN 21 MG/DL (7-18); GLUCOSE,RANDOM 94 MG/DL (74-106)
[2018-02-17 00:25] LABS: CALCIUM OXALATE CRYSTALS,URINE FEW /hpf; RBC, URINE 0-3 /hpf (0-3); SQUAMOUS EPITHELIAL CELL URINE 0-5 /hpf (0-5); WBC, URINE 0-2 /hpf (0-5)
[2018-02-17 00:26] LABS: ALT (GPT) 18 U/L (12-78); AST (GOT) 24 U/L (15-37); CREATININE 0.89 MG/DL (0.60-1.30); GLOMERULAR FILTRATION RATE 105 ML/MIN (>89)
[2018-02-17 00:27] LABS: TOTAL BILIRUBIN ADULT 0.2 MG/DL (0.2-1.0); TOTAL PROTEIN 8.1 GM/DL (6.4-8.2)
[2018-02-17 00:28] LABS: ALKALINE PHOSPHATASE 89 U/L (45-117)
[2018-02-17] MEDS ORDERED: PROC10TA PO (01:13)
[2018-02-17] MEDS ORDERED: IBUP1TAB7 PO (01:13)
[2018-02-17] MEDS ORDERED: PERC7.5T13 PO (01:13)
[2018-02-17] MEDS ORDERED: MORPHINE SULFATE 4 MG/ML INJ IV PUSH ONE ×2 (01:30)
[2018-02-17] MEDS ORDERED: KETOROLAC TROMETHAMINE 60 MG/2 ML (IM) VIAL IVP ONE (01:30)
[2018-02-17] MEDS ORDERED: PROCHLORPERAZINE INJ 10 MG/2 ML VIAL IV PUSH ONE (01:30)
[2018-02-17 01:55] VITALS: BP 147/83; PULSE 68; RESP 16; O2SAT 98
[2018-02-17 02:44] VITALS: BP 146/83
== END 2018-02-17 02:40 | disposition home or self-care (01) ==
LOC: PHED 22:18
DX: R10.31 Right lower quadrant pain (principal); K92.1 Melena; B02.9 Zoster without complications; N20.0 Calculus of kidney; F32.9 Major depressive disorder, single episode, unspecified; F41.9 Anxiety disorder, unspecified; I25.10 Atherosclerotic heart disease of native coronary artery without angina pectoris; F17.200 Nicotine dependence, unspecified, uncomplicated; Z21 Asymptomatic human immunodeficiency virus [HIV] infection status
CPT/HCPCS: 80053; 81001; 83690; 85025; 96361; 96374; 96375; 96376; 99284; J0780; J1885; J2270; J7030; J2405

== ENCOUNTER 2018-02-18 19:00 | Observation (INO) | payer MEDICAID ==
[~2018-02-18] VITALS: Ht 188 cm; Wt 78.0 kg
[~2018-02-18 19:00] MED LIST changes: +IBUP1TAB7 PO; -NEUR100C PO; +PERC7.5T13 PO; +PROC10TA PO; -TRAM50TA PO
[2018-02-18 19:17] VITALS: BP 153/69; PULSE 90; RESP 20; TEMP 99; O2SAT 99
--- NOTE | 2018-02-18 20:28 | PD ---
HPI Chief Complaint: Skin Problem Time Seen by Provider: 19:49 Travel History International Travel<30 days: Yes Contact w/Intl Traveler<30days: Yes Name of Country Traveled to: [facility], [facility] , [place], OTHER ISLANDS Traveled to known affect area: No History of Present Illness HPI 22-year-old male complains of painful rash on the right flank and right lower abdomen area and rash all over the body. Patient just came back from a cruise to [place] and [facility]. Patient started having painful rash to the right flank and right lower abdomen. Patient was seen in emergency room 2 days ago and was diagnosed with shingles. Patient was given prescription for famciclovir, Pyridium and Percocet for pain. CT scan abdomen pelvis shows nonobstructive stone. Patient was advised to continue with pain medication and follow with local physician. Patient states that he started having a rash involving the scalp, the whole body since this morning. Patient denies any fever at home. Patient has history HIV positive and has not had CD4 count or viral load test done recently. Patient is not on any medication for HIV condition. Patient states that he had a sore throat also. Patient denies any chest pain or shortness of breath. Patient denies any headache or stiff neck. PFSH Past Medical History ADHD: Yes (YOUNGER AGE) Anxiety: Yes Depression: Yes Heart Rhythm Problems: Yes (HEART PROBLEMS AN , HEART MURMUR) Cancer: Yes (STATES NOT SURE YET WHAT TYPE,RECENT DX) Coronary Artery Disease: Yes (" heart problems as an . Heart Murmur. ) Diabetes: No Diminished Hearing: No Immune Disorder: Yes (HIV) Immunizations Current: Yes (school shots utd.) Pneumonia: Yes Social History Alcohol Use: No Tobacco Use: Yes (1 PPD) Substance Use: No Allergies-Medications (Allergen,Severity, Reaction): Coded Allergies: buspirone (Verified Allergy, Severe, Anaphylaxis, 02/18/18) HEART RACES, TURNS BLUE, PASSES OUT iodine (Verified Allergy, Severe, RASH/WELTS/ANYPHYLAXIS, 02/18/18) lorazepam (Verified Allergy, Severe, Anaphylaxis, 02/18/18) HEART RACES, TURNS BLUE, PASSES OUT potassium iodide (Verified Allergy, Severe, RASH/WELTS/ANYPHYLAXIS, ) povidone-iodine (Verified Allergy, Severe, RASH/WELTS/ANYPHYLAXIS, 02/18/18 ) sodium iodide (Verified Allergy, Severe, RASH/WELTS/ANYPHYLAXIS, 02/18/18) sodium iodide (Verified Allergy, Severe, RASH/WELTS/ANYPHYLAXIS, 02/18/18) Reported Meds & Prescriptions Reported Meds & Active Scripts Active Ibuprofen 800 Mg Tab 800 Mg PO TID Percocet (Oxycodone-Acetaminophen) 7.5-325 mg Tab 1 Tab PO Q4H PRN Prochlorperazine Maleate 10 Mg Tab 10 Mg PO Q6H PRN Pyridium (Phenazopyridine HCl) 100 Mg Tab 200 Mg PO Q8H PRN Percocet (Oxycodone-Acetaminophen) 5-325 mg Tab 1 Tab PO Q4H PRN Famciclovir 500 Mg Tab 500 Mg PO TID 10 Days Review of Systems General / Constitutional: No: Fever Eyes: No: Visual changes HENT: Positive: Sore Throat, No: Headaches Cardiovascular: No: Chest Pain or Discomfort Respiratory: No: Shortness of Breath Gastrointestinal: Positive: Abdominal Pain Genitourinary: No: Dysuria Musculoskeletal: No: Pain Skin: No Rash Neurologic: No: Weakness Psychiatric: No: Depression Endocrine: No: Polydipsia Hematologic/Lymphatic: No: Easy Bruising Physical Exam Narrative GENERAL: Well-nourished, well-developed patient. SKIN: Focused skin assessment warm/dry. HEAD: Normocephalic. EYES: No scleral icterus. No injection or drainage. NECK: Supple, trachea midline. No JVD or lymphadenopathy. CARDIOVASCULAR: Regular rate and rhythm without murmurs, gallops, or rubs. RESPIRATORY: Breath sounds equal bilaterally. No accessory muscle use. GASTROINTESTINAL: Abdomen soft, non-tender, nondistended. MUSCULOSKELETAL: No cyanosis, or edema. BACK: Nontender without obvious deformity. No CVA tenderness. Patient has patchy rash on right flank and right lower abdomen area. Some blister lesions noted. Patient also has a diffuse small blister lesion on the scalp, chest back abdomen and extremity. Data Data Last Documented VS Vital Signs Date Time Temp Pulse Resp B/P (MAP) Pulse Ox O2 Delivery O2 Flow Rate FiO2 02/18/18 19:17 99.0 90 20 153/69 (97) 99 Orders Orders Complete Blood Count With Diff (02/18/18 20:00) Comprehensive Metabolic Panel (02/18/18 20:00) Iv Access Insert/Monitor (02/18/18 20:00) Ecg Monitoring (02/18/18 20:00) Oximetry (02/18/18 20:00) Blood Culture (02/18/18 20:13) Varicella Zoster By Pcr (02/18/18 20:13) Varicella Zoster Igg & Igm (02/18/18 20:13) Herpes Simplex Virus Culture (02/18/18 20:13) Lymphocyte Profile Cd4 Cd8 (02/18/18 20:13) Acyclovir Inj (Zovirax Inj) (02/18/18 20:45) Morphine Inj (Morphine Inj) (02/18/18 21:00) Ondansetron Inj (Zofran Inj) (02/18/18 21:00) Morphine Inj (Morphine Inj) (02/18/18 21:15) Consult Infectious Disease (02/18/18 ) Labs Laboratory Tests Test 02/18/18 20:35 White Blood Count 3.2 TH/MM3 Red Blood Count 4.55 MIL/MM3 Hemoglobin 13.2 GM/DL Hematocrit 39.1 % Mean Corpuscular Volume 85.8 FL Mean Corpuscular Hemoglobin 29.1 PG Mean Corpuscular Hemoglobin Concent 33.9 % Red Cell Distribution Width 12.6 % Platelet Count 156 TH/MM3 Mean Platelet Volume 7.9 FL Neutrophils (%) (Auto) 59.0 % Lymphocytes (%) (Auto) 26.3 % Monocytes (%) (Auto) 11.2 % Eosinophils (%) (Auto) 2.8 % Basophils (%) (Auto) 0.7 % Neutrophils # (Auto) 1.9 TH/MM3 Lymphocytes # (Auto) 0.8 TH/MM3 Monocytes # (Auto) 0.4 TH/MM3 Eosinophils # (Auto) 0.1 TH/MM3 Basophils # (Auto) 0.0 TH/MM3 CBC Comment DIFF FINAL Differential Comment Blood Urea Nitrogen 8 MG/DL Creatinine 0.73 MG/DL Random Glucose 90 MG/DL Total Protein 8.4 GM/DL Albumin 3.6 GM/DL Calcium Level 8.9 MG/DL Alkaline Phosphatase 96 U/L Aspartate Amino Transf (AST/SGOT) 23 U/L Alanine Aminotransferase (ALT/SGPT) 19 U/L Total Bilirubin 0.2 MG/DL Sodium Level 138 MEQ/L Potassium Level 3.7 MEQ/L Chloride Level 107 MEQ/L Carbon Dioxide Level 26.5 MEQ/L Anion Gap 5 MEQ/L Estimat Glomerular Filtration Rate 132 ML/MIN [facility] Medical Decision Making Medical Screen Exam Complete: Yes Emergency Medical Condition: Yes Differential Diagnosis Differential diagnosis including shingles, disseminated varicella. Narrative Course 32-year-old male with patchy rash on right flank and right lower abdomen area and also diffuse rash over the scalp chest back and extremity. Patient has history of HIV positive. The rash typical of shingles and disseminated varicella. Patient will be admitted for IV acyclovir treatment. Acyclovir 800 mg IV given. Morphine 4 mg IV. Zofran 4 mg IV. Diagnosis Primary Impression: Disseminated varicella Additional Impression: Shingles Qualified Codes: B02.7 - Disseminated zoster Admitting Information Admitting Physician Requests: Admit Trevon Madrid MD Feb 18, 2018 20:28
[2018-02-18] MEDS ORDERED: ACYCLOVIR IV ONE (20:45)
[2018-02-18] MEDS ORDERED: SODIUM CHLORIDE 0.9% IV ONE (20:45)
[2018-02-18 20:51] LABS: AUTOMATED NEUTROPHIL # 1.9 TH/MM3 (1.8-7.7); BASOPHIL % 0.7 % (0.0-2.0); EOSINOPHIL # 0.1 TH/MM3 (0-0.4); EOSINOPHIL % 2.8 % (0.0-4.0); HEMATOCRIT 39.1 % (39.0-51.0); HEMOGLOBIN 13.2 GM/DL (13.0-17.0); LYMPH % 26.3 % (9.0-44.0); LYMPHOCYTE # 0.8 TH/MM3 (1.0-4.8); MEAN CELL VOLUME 85.8 FL (80.0-100.0); MEAN CORPUSCULAR HEMOGLOBIN 29.1 PG (27.0-34.0); MEAN CORPUSCULAR HGB CONC 33.9 % (32.0-36.0); MEAN PLATELET VOLUME 7.9 FL (7.0-11.0); MONO % 11.2 % (0.0-8.0); MONOCYTE # 0.4 TH/MM3 (0-0.9); PLATELET COUNT 156 TH/MM3 (150-450); RED BLOOD COUNT 4.55 MIL/MM3 (4.50-5.90); RED CELL DISTRIBUTION WIDTH 12.6 % (11.6-17.2); WHITE BLOOD COUNT 3.2 TH/MM3 (4.0-11.0)
[2018-02-18 20:58] LABS: CHLORIDE 107 MEQ/L (98-107); SODIUM (NA) 138 MEQ/L (136-145)
[2018-02-18] MEDS ORDERED: MORPHINE SULFATE 2 MG/ML SYRINGE IV PUSH ONE (21:00)
[2018-02-18] MEDS ORDERED: ONDANSETRON HCL 4 MG/2 ML VIAL IV PUSH ONE (21:00)
[2018-02-18 21:01] LABS: CALCIUM 8.9 MG/DL (8.5-10.1)
[2018-02-18 21:02] LABS: ALBUMIN 3.6 GM/DL (3.4-5.0); BICARBONATE 26.5 MEQ/L (21.0-32.0); GLUCOSE,RANDOM 90 MG/DL (74-106)
[2018-02-18 21:11] LABS: ALKALINE PHOSPHATASE 96 U/L (45-117); ALT (GPT) 19 U/L (12-78); AST (GOT) 23 U/L (15-37); BLOOD UREA NITROGEN 8 MG/DL (7-18); CREATININE 0.73 MG/DL (0.60-1.30); GLOMERULAR FILTRATION RATE 132 ML/MIN (>89); TOTAL BILIRUBIN ADULT 0.2 MG/DL (0.2-1.0); TOTAL PROTEIN 8.4 GM/DL (6.4-8.2)
[2018-02-18] MEDS ORDERED: MORPHINE SULFATE 4 MG/ML INJ IV PUSH ONE (21:15)
[2018-02-18] MEDS ORDERED: ONDANSETRON HCL 4 MG/2 ML VIAL IVP PRN (22:15)
[2018-02-18] MEDS ORDERED: ACETAMINOPHEN 325 MG TAB PO PRN (22:15)
[2018-02-18] MEDS: SODIUM CHLOR 0.9% 1000 ML INJ 1,000 ML IV SCH (22:24)
[2018-02-18 22:30] VITALS: BP 151/73; PULSE 70; RESP 16; TEMP 98.7; O2SAT 100
[2018-02-18] MEDS ORDERED: MORPHINE SULFATE 4 MG/ML INJ IV PUSH PRN (22:30)
[2018-02-18] MEDS: MORPHINE SULFATE 4 MG/ML INJ IV PUSH PRN (22:59)
[2018-02-18 23:40] VITALS: BP 157/84; PULSE 73; RESP 20; TEMP 98.8; O2SAT 99
[2018-02-19] MEDS ORDERED: KETOROLAC TROMETHAMINE 30 MG/ML (IVP) VIAL IV PUSH ONE ×2 (01:00→23:15)
[2018-02-19] MEDS: SODIUM CHLORIDE 0.9% FLUSH 10 ML FLUSH IV FLUSH PRN ×5 (01:14→23:31)
[2018-02-19] MEDS: MORPHINE SULFATE 4 MG/ML INJ IV PUSH PRN ×3 (02:29→09:47)
[2018-02-19] MEDS: ACYCLOVIR INJ 700 MG in SODIUM CHLORIDE 0.9% INJ 100 ML IV SCH ×3 (05:44→21:57)
[2018-02-19 06:44] LABS: AUTOMATED NEUTROPHIL # 1.1 TH/MM3 (1.8-7.7); BASOPHIL % 0.7 % (0.0-2.0); EOSINOPHIL # 0.1 TH/MM3 (0-0.4); EOSINOPHIL % 3.7 % (0.0-4.0); HEMATOCRIT 36.3 % (39.0-51.0); HEMOGLOBIN 12.2 GM/DL (13.0-17.0); LYMPH % 38.7 % (9.0-44.0); MEAN CELL VOLUME 86.2 FL (80.0-100.0); MEAN CORPUSCULAR HGB CONC 33.6 % (32.0-36.0); MEAN PLATELET VOLUME 7.9 FL (7.0-11.0); MONO % 10.1 % (0.0-8.0); MONOCYTE # 0.3 TH/MM3 (0-0.9); NEUT % 46.8 % (16.0-70.0); PLATELET COUNT 132 TH/MM3 (150-450); RED BLOOD COUNT 4.21 MIL/MM3 (4.50-5.90); RED CELL DISTRIBUTION WIDTH 12.5 % (11.6-17.2); WHITE BLOOD COUNT 2.5 TH/MM3 (4.0-11.0)
[2018-02-19 06:47] LABS: CHLORIDE 107 MEQ/L (98-107); SODIUM (NA) 141 MEQ/L (136-145)
[2018-02-19 06:52] LABS: CALCIUM 8.5 MG/DL (8.5-10.1)
[2018-02-19 07:02] LABS: ALKALINE PHOSPHATASE 83 U/L (45-117); ALT (GPT) 15 U/L (12-78); AST (GOT) 18 U/L (15-37); BICARBONATE 29.5 MEQ/L (21.0-32.0); BLOOD UREA NITROGEN 9 MG/DL (7-18); CREATININE 0.74 MG/DL (0.60-1.30); GLOMERULAR FILTRATION RATE 130 ML/MIN (>89); GLUCOSE,RANDOM 90 MG/DL (74-106); TOTAL BILIRUBIN ADULT 0.3 MG/DL (0.2-1.0); TOTAL PROTEIN 7.5 GM/DL (6.4-8.2)
[2018-02-19 08:00] VITALS: BP 143/80; PULSE 68; RESP 16; TEMP 97.6; O2SAT 99
[2018-02-19] MEDS: SODIUM CHLOR 0.9% 1000 ML INJ 1,000 ML IV SCH (08:13)
[2018-02-19] MEDS: SODIUM CHLORIDE 0.9% FLUSH 10 ML FLUSH IV FLUSH SCH ×2 (08:48→19:40)
--- NOTE | 2018-02-19 11:09 | HHI.HP ---
[facility]ician No Primary Care Physician Admission Diagnosis Disseminated varicella. Shingles. Diagnoses: Chief Complaint: Right flank rash with pain Travel History International Travel<30 Days: Yes Contact w/Intl Traveler <30 Da: Yes Name of Country Traveled to: [facility], [facility] , [place], OTHER ISLANDS Traveled to Known Affected Are: No History of Present Illness This patient is a 22-year-old gentleman with a limited follow-up due to nonadherence and who is also HIV positive. He has 3 or 4 days of right flank severe pain with associated rash. It is a vesicular rash appearing on the right L1 -L 4 dermatomes. The pain is severe. Is associated with cough. Patient notes no previous episodes. He does have a 1-year-old child at home who is not sick. Recently he did attend a cruise going into [facility]. He was on isolation and that cruise after the cruise ship doctor examined him. Review of Systems Constitutional: DENIES: Diaphoretic episodes, Fatigue, Fever, Weight gain, Weight loss, Chills, Dizziness, Change in appetite, Night Sweats Endocrine: DENIES: Heat/cold intolerance, Polydipsia, Polyuria, Polyphagia Eyes: DENIES: Blurred vision, Diplopia, Eye inflammation, Eye pain, Vision loss , Photosensitivity, Double Vision Ears, nose, mouth, throat: DENIES: Tinnitus, Hearing loss, Vertigo, Nasal discharge, Oral lesions, Throat pain, Hoarseness, Ear Pain, Running Nose, Epistaxis, Sinus Pain, Toothache, Odynophagia Respiratory: DENIES: Apneas, Cough, Snoring, Wheezing, Hemoptysis, Sputum production, Shortness of breath Cardiovascular: DENIES: Chest pain, Palpitations, Syncope, Dyspnea on Exertion , PND, Lower Extremity Edema, Orthopnea, Claudication Gastrointestinal: DENIES: Abdominal pain, Black stools, Bloody stools, Constipation, Diarrhea, Nausea, Vomiting, Difficulty Swallowing, Anorexia Genitourinary: DENIES: Sexual dysfunction, Urinary frequency, Urinary incontinence, Urgency, Hematuria, Dysuria, Nocturia, Penile Discharge, Testicular Pain, Testicular Swelling Musculoskeletal: DENIES: Joint pain, Muscle aches, Stiffness, Joint Swelling, Back pain, Neck pain Integumentary: COMPLAINS OF: Rash, DENIES: Abnormal pigmentation, Nail changes , Pruritus Hematologic/lymphatic: DENIES: Bruising, Lymphadenopathy Immunologic/allergic: DENIES: Eczema, Urticaria Neurologic: DENIES: Abnormal gait, Headache, Localized weakness, Paresthesias, Seizures, Speech Problems, Tremor, Poor Balance Psychiatric: DENIES: Anxiety, Confusion, Mood changes, Depression, Hallucinations, Agitation, Suicidal Ideation, Homicidal Ideation, Delusions Except as stated in HPI: all other systems reviewed are Neg Past Family Social History Past Medical History HIV positive Past Surgical History Denies Reported Medications Reviewed in the EMR, medications prescribed per emergency room visit recently Allergies: Coded Allergies: buspirone (Verified Allergy, Severe, Anaphylaxis, 02/18/18) HEART RACES, TURNS BLUE, PASSES OUT iodine (Verified Allergy, Severe, RASH/WELTS/ANYPHYLAXIS, 02/18/18) lorazepam (Verified Allergy, Severe, Anaphylaxis, 02/18/18) HEART RACES, TURNS BLUE, PASSES OUT potassium iodide (Verified Allergy, Severe, RASH/WELTS/ANYPHYLAXIS, ) povidone-iodine (Verified Allergy, Severe, RASH/WELTS/ANYPHYLAXIS, 02/18/18 ) sodium iodide (Verified Allergy, Severe, RASH/WELTS/ANYPHYLAXIS, 02/18/18) sodium iodide (Verified Allergy, Severe, RASH/WELTS/ANYPHYLAXIS, 02/18/18) Active Ordered Medications Reviewed in the EMR Family History Both of his parents , mother from breast cancer, father from a brain aneurysm Social History Recently returned from a cruise, lives with his family Patient smokes a pack a day but denies illicit drug use or alcohol Physical Exam Vital Signs Vital Signs Date Time Temp Pulse Resp B/P (MAP) Pulse Ox O2 Delivery O2 Flow Rate FiO2 02/19/18 08:00 97.6 68 16 143/80 (101) 99 02/18/18 23:40 98.8 73 20 157/84 (108) 99 02/18/18 23:35 02/18/18 22:30 98.7 70 16 151/73 (99) 100 Room Air 02/18/18 19:17 99.0 90 20 153/69 (97) 99 Physical Exam GENERAL: This is a well-nourished, well-developed patient, in no apparent distress. SKIN: No rashes, ecchymoses or lesions. Cool and dry. HEAD: Atraumatic. Normocephalic. No temporal or scalp tenderness. EYES: Pupils equal round and reactive. Extraocular motions intact. No scleral icterus. No injection or drainage. ENT: Nose without bleeding, purulent drainage or septal hematoma. Throat without erythema, tonsillar hypertrophy or exudate. Uvula midline. Airway patent. NECK: Trachea midline. No JVD or lymphadenopathy. Supple, nontender, no meningeal signs. CARDIOVASCULAR: Regular rate and rhythm without murmurs, gallops, or rubs. RESPIRATORY: Clear to auscultation. Breath sounds equal bilaterally. No wheezes , rales, or rhonchi. GASTROINTESTINAL: Abdomen soft, non-tender, nondistended. No hepato-splenomegaly , or palpable masses. No guarding. MUSCULOSKELETAL: Extremities without clubbing, cyanosis, or edema. No joint tenderness, effusion, or edema noted. No calf tenderness. Negative Homans sign bilaterally. NEUROLOGICAL: Awake and alert. Cranial nerves II through XII intact. Motor and sensory grossly within normal limits. Five out of 5 muscle strength in all muscle groups. Normal speech. Laboratory Laboratory Tests Test 02/18/18 20:35 02/18/18 23:25 02/19/18 05:32 White Blood Count 3.2 2.5 Red Blood Count 4.55 4.21 Hemoglobin 13.2 12.2 Hematocrit 39.1 36.3 Mean Corpuscular Volume 85.8 86.2 Mean Corpuscular Hemoglobin 29.1 29.0 Mean Corpuscular Hemoglobin Concent 33.9 33.6 Red Cell Distribution Width 12.6 12.5 Platelet Count 156 132 Mean Platelet Volume 7.9 7.9 Neutrophils (%) (Auto) 59.0 46.8 Lymphocytes (%) (Auto) 26.3 38.7 Monocytes (%) (Auto) 11.2 10.1 Eosinophils (%) (Auto) 2.8 3.7 Basophils (%) (Auto) 0.7 0.7 Neutrophils # (Auto) 1.9 1.1 Lymphocytes # (Auto) 0.8 1.0 Monocytes # (Auto) 0.4 0.3 Eosinophils # (Auto) 0.1 0.1 Basophils # (Auto) 0.0 0.0 CBC Comment DIFF FINAL DIFF FINAL Differential Comment Blood Urea Nitrogen 8 9 Creatinine 0.73 0.74 Random Glucose 90 90 Total Protein 8.4 7.5 Albumin 3.6 3.0 Calcium Level 8.9 8.5 Alkaline Phosphatase 96 83 Aspartate Amino Transf (AST/SGOT) 23 18 Alanine Aminotransferase (ALT/SGPT) 19 15 Total Bilirubin 0.2 0.3 Sodium Level 138 141 Potassium Level 3.7 3.9 Chloride Level 107 107 Carbon Dioxide Level 26.5 29.5 Anion Gap 5 5 Estimat Glomerular Filtration Rate 132 130 Date/Time Source Procedure Growth Status 02/18/18 20:35 Blood Peripheral Aerobic Blood Culture Pending Received 02/18/18 20:35 Blood Peripheral Anaerobic Blood Culture Pending Received 02/18/18 21:30 Other Herpes Simplex Virus Culture Pending Received Result Diagram: 02/19/18 0532 02/19/18 0532 Assessment and Plan Problem List: (1) Shingles ICD Code: B02.9 - Zoster without complications Status: Acute Plan: Continue with acyclovir for now ID consult pending in this patient who is immunocompromised And nonadherent Continue supportive care, patient has requested morphine for pain (2) HIV (human immunodeficiency virus infection) ICD Code: Z21 - HIV (human immunodeficiency virus infection) Status: Acute Plan: Patient nonadherent with medical treatment We will need to continue to follow-up with the health department for infectious disease services Discussed Condition With Patient, Garrison MARCIAL Problem Qualifiers (1) Shingles: Qualified Codes: B02.7 - Disseminated zoster Kim Cruz MD February 19, 2018 11:09
[2018-02-19 12:00] VITALS: BP 147/70; PULSE 70; RESP 16; TEMP 97.6; O2SAT 100
[2018-02-19] MEDS ORDERED: AMITRIPTYLINE HCL 25 MG TAB PO ONE (12:00)
[2018-02-19] MEDS: MORPHINE SULFATE 15 MG TAB PO PRN ×2 (13:10→19:40)
[2018-02-19 16:00] VITALS: BP 150/80; PULSE 59; RESP 15; TEMP 96.8; O2SAT 100
[2018-02-19 20:00] VITALS: BP 140/76; PULSE 73; RESP 18; TEMP 97.3; O2SAT 95
--- NOTE | 2018-02-19 20:59 | PD.CONS ---
History of Present Illness Service ID CONSULT DR ERNST Consult Requested By DR MANNING Reason for Consult HIV+ SHINGLES Primary Care Physician No Primary Care Physician Diagnoses: (1) Shingles History of Present Illness 22 YR OLD MALE ADMITTED WITH A RASH ACROSS HIS ABDOMEN THAT STARTED SUNDAY. HE STATES IT STARTED A FEW PUSTULES TO HIS RIGHT LOWER ABDOMEN AND SPREAD ALL OVER HIS RIGHT TRUNK AND BACK. ITS VERY PAINFUL. HE WAS DIAGNOSED HIV+ 4 YRS AGO AFTER BEING SEEN IN ER WITH A SORE THROAT. HIS CD4 WAS VERY LOW AND HE WAS STARTED ON GENVOYA. HE STATES HE MISSED 2 WEEKS AND DEVELOPED RESISTANCE. HE HAS NOT TAKEN MEDS IN A YEAR DUE TO NO INSURANCE. HE HAS A 12M OLD AND HIS IS ALSO POSITIVE HIV AND FALLEN OUT OF CARE. HE HAS LOST 20LBS. HE DENIES FEVER OR CHILLS. Review of Systems Constitutional: COMPLAINS OF: Weight loss, DENIES: Dizziness Endocrine: DENIES: Polyuria Eyes: DENIES: Eye inflammation, Eye pain Ears, nose, mouth, throat: DENIES: Nasal discharge Respiratory: DENIES: Wheezing Gastrointestinal: DENIES: Bloody stools Genitourinary: DENIES: Urinary incontinence Integumentary: COMPLAINS OF: Rash, DENIES: Pruritus Hematologic/lymphatic: DENIES: Lymphadenopathy Immunologic/allergic: COMPLAINS OF: Urticaria Neurologic: DENIES: Headache Psychiatric: DENIES: Mood changes Past Family Social History Allergies: Coded Allergies: buspirone (Verified Allergy, Severe, Anaphylaxis, 02/18/18) HEART RACES, TURNS BLUE, PASSES OUT iodine (Verified Allergy, Severe, RASH/WELTS/ANYPHYLAXIS, 02/18/18) lorazepam (Verified Allergy, Severe, Anaphylaxis, 02/18/18) HEART RACES, TURNS BLUE, PASSES OUT potassium iodide (Verified Allergy, Severe, RASH/WELTS/ANYPHYLAXIS, ) povidone-iodine (Verified Allergy, Severe, RASH/WELTS/ANYPHYLAXIS, 02/18/18 ) sodium iodide (Verified Allergy, Severe, RASH/WELTS/ANYPHYLAXIS, 02/18/18) sodium iodide (Verified Allergy, Severe, RASH/WELTS/ANYPHYLAXIS, 02/18/18) Past Medical History HIV + Past Surgical History NONE Reported Medications NONE Active Ordered Medications ACYCLOVIR Family History MOTHER OF BREAST CANCER DAD OF ANEURYSM Social History LIVES WITH FAMILY AND AND SON PPD NO IV DRUG USE 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 multiple tattoos SKIN: No rashes, ecchymoses or lesions. Cool and dry. HEAD: Atraumatic. Normocephalic. No temporal or scalp tenderness. EYES: Pupils equal round and reactive. Extraocular motions intact. No scleral icterus. No injection or drainage. ENT: Nose without bleeding, purulent drainage or septal hematoma. Throat without erythema, tonsillar hypertrophy or exudate. Uvula midline. Airway patent. NECK: Trachea midline. No JVD or lymphadenopathy. Supple, nontender, no meningeal signs. CARDIOVASCULAR: Regular rate and rhythm without murmurs, gallops, or rubs. RESPIRATORY: Clear to auscultation. Breath sounds equal bilaterally. No wheezes , rales, or rhonchi. GASTROINTESTINAL: Abdomen soft, non-tender, nondistended. No hepato-splenomegaly , or palpable masses. No guarding. rash over right abd and trunk painful. no draiange MUSCULOSKELETAL: Extremities without clubbing, cyanosis, or edema. No joint tenderness, effusion, or edema noted. No calf tenderness. Negative Homans sign bilaterally. NEUROLOGICAL: Awake and alert. Cranial nerves II through XII intact. Motor and sensory grossly within normal limits. Five out of 5 muscle strength in all muscle groups. Normal speech. Laboratory Laboratory Tests Test 02/18/18 23:25 02/19/18 05:32 White Blood Count 2.5 Red Blood Count 4.21 Hemoglobin 12.2 Hematocrit 36.3 Mean Corpuscular Volume 86.2 Mean Corpuscular Hemoglobin 29.0 Mean Corpuscular Hemoglobin Concent 33.6 Red Cell Distribution Width 12.5 Platelet Count 132 Mean Platelet Volume 7.9 Neutrophils (%) (Auto) 46.8 Lymphocytes (%) (Auto) 38.7 Monocytes (%) (Auto) 10.1 Eosinophils (%) (Auto) 3.7 Basophils (%) (Auto) 0.7 Neutrophils # (Auto) 1.1 Lymphocytes # (Auto) 1.0 Monocytes # (Auto) 0.3 Eosinophils # (Auto) 0.1 Basophils # (Auto) 0.0 CBC Comment DIFF FINAL Differential Comment Blood Urea Nitrogen 9 Creatinine 0.74 Random Glucose 90 Total Protein 7.5 Albumin 3.0 Calcium Level 8.5 Alkaline Phosphatase 83 Aspartate Amino Transf (AST/SGOT) 18 Alanine Aminotransferase (ALT/SGPT) 15 Total Bilirubin 0.3 Sodium Level 141 Potassium Level 3.9 Chloride Level 107 Carbon Dioxide Level 29.5 Anion Gap 5 Estimat Glomerular Filtration Rate 130 Date/Time Source Procedure Growth Status 02/18/18 20:35 Blood Peripheral Aerobic Blood Culture - Preliminary NO GROWTH IN 1 DAY Resulted 02/18/18 20:35 Blood Peripheral Anaerobic Blood Culture - Preliminary NO GROWTH IN 1 DAY Resulted 02/18/18 21:30 Other Herpes Simplex Virus Culture Pending Received Result Diagram: 02/19/18 0532 02/19/18 0532 Assessment and Plan Problem List: (1) Shingles ICD Codes: B02.9 - Zoster without complications Status: Acute (2) Disseminated varicella ICD Codes: B01.9 - Varicella without complication Status: Acute (3) HIV (human immunodeficiency virus infection) ICD Codes: Z21 - HIV (human immunodeficiency virus infection) Status: Acute Plan: check cd4 subset, hiv pcr , genotype spoke to him about angus holder will continue acyclovir for now check cmv pcr start bactrim ds po daily will fu Problem Qualifiers (1) Shingles: Qualified Codes: B02.7 - Disseminated zoster Yamilet Lyles February 19, 2018 20:59
[2018-02-20] VITALS: BP 123/71; PULSE 78; RESP 18; TEMP 98.8; O2SAT 95
[2018-02-20] MEDS: ACYCLOVIR INJ 700 MG in SODIUM CHLORIDE 0.9% INJ 100 ML IV SCH (04:48)
[2018-02-20] MEDS: MORPHINE SULFATE 15 MG TAB PO PRN ×3 (04:48→13:00)
[2018-02-20] MEDS: SODIUM CHLORIDE 0.9% FLUSH 10 ML FLUSH IV FLUSH PRN (04:48)
[2018-02-20 08:00] VITALS: BP 125/61; PULSE 61; RESP 19; TEMP 97.5; O2SAT 99
--- NOTE | 2018-02-20 08:33 | HHI.IDPN ---
Subjective Subjective Remarks Pain in site No fevers Antibiotics IV Acyclovir Lines Peripheral IV Past Medical History HIV - not on Rx for 8 months Allergies: Coded Allergies: buspirone (Verified Allergy, Severe, Anaphylaxis, 02/18/18) HEART RACES, TURNS BLUE, PASSES OUT iodine (Verified Allergy, Severe, RASH/WELTS/ANYPHYLAXIS, 02/18/18) lorazepam (Verified Allergy, Severe, Anaphylaxis, 02/18/18) HEART RACES, TURNS BLUE, PASSES OUT potassium iodide (Verified Allergy, Severe, RASH/WELTS/ANYPHYLAXIS, ) povidone-iodine (Verified Allergy, Severe, RASH/WELTS/ANYPHYLAXIS, 02/18/18 ) sodium iodide (Verified Allergy, Severe, RASH/WELTS/ANYPHYLAXIS, 02/18/18) sodium iodide (Verified Allergy, Severe, RASH/WELTS/ANYPHYLAXIS, 02/18/18) Review of Systems Eyes Eyes: Burning Objective . Vital Signs Date Time Temp Pulse Resp B/P (MAP) Pulse Ox O2 Delivery O2 Flow Rate FiO2 02/20/18 00:00 98.8 78 18 123/71 (88) 95 02/19/18 20:00 97.3 73 18 140/76 (97) 95 02/19/18 16:00 96.8 59 15 150/80 (103) 100 02/19/18 12:00 97.6 70 16 147/70 (95) 100 . Laboratory Tests Test 02/18/18 20:35 02/19/18 05:32 White Blood Count 3.2 TH/MM3 2.5 TH/MM3 Red Blood Count 4.55 MIL/MM3 4.21 MIL/MM3 Hemoglobin 13.2 GM/DL 12.2 GM/DL Hematocrit 39.1 % 36.3 % Mean Corpuscular Volume 85.8 FL 86.2 FL Mean Corpuscular Hemoglobin 29.1 PG 29.0 PG Mean Corpuscular Hemoglobin Concent 33.9 % 33.6 % Red Cell Distribution Width 12.6 % 12.5 % Platelet Count 156 TH/MM3 132 TH/MM3 Mean Platelet Volume 7.9 FL 7.9 FL Neutrophils (%) (Auto) 59.0 % 46.8 % Lymphocytes (%) (Auto) 26.3 % 38.7 % Monocytes (%) (Auto) 11.2 % 10.1 % Eosinophils (%) (Auto) 2.8 % 3.7 % Basophils (%) (Auto) 0.7 % 0.7 % Neutrophils # (Auto) 1.9 TH/MM3 1.1 TH/MM3 Lymphocytes # (Auto) 0.8 TH/MM3 1.0 TH/MM3 Monocytes # (Auto) 0.4 TH/MM3 0.3 TH/MM3 Eosinophils # (Auto) 0.1 TH/MM3 0.1 TH/MM3 Basophils # (Auto) 0.0 TH/MM3 0.0 TH/MM3 CBC Comment DIFF FINAL DIFF FINAL Differential Comment Laboratory Tests Test 02/18/18 20:35 02/19/18 05:32 Blood Urea Nitrogen 8 MG/DL 9 MG/DL Creatinine 0.73 MG/DL 0.74 MG/DL Random Glucose 90 MG/DL 90 MG/DL Total Protein 8.4 GM/DL 7.5 GM/DL Albumin 3.6 GM/DL 3.0 GM/DL Calcium Level 8.9 MG/DL 8.5 MG/DL Alkaline Phosphatase 96 U/L 83 U/L Aspartate Amino Transf (AST/SGOT) 23 U/L 18 U/L Alanine Aminotransferase (ALT/SGPT) 19 U/L 15 U/L Total Bilirubin 0.2 MG/DL 0.3 MG/DL Sodium Level 138 MEQ/L 141 MEQ/L Potassium Level 3.7 MEQ/L 3.9 MEQ/L Chloride Level 107 MEQ/L 107 MEQ/L Carbon Dioxide Level 26.5 MEQ/L 29.5 MEQ/L Anion Gap 5 MEQ/L 5 MEQ/L Estimat Glomerular Filtration Rate 132 ML/MIN 130 ML/MIN Microbiology Date/Time Source Procedure Growth Status 02/18/18 20:35 Blood Peripheral Aerobic Blood Culture - Preliminary NO GROWTH IN 1 DAY Resulted 02/18/18 20:35 Blood Peripheral Anaerobic Blood Culture - Preliminary NO GROWTH IN 1 DAY Resulted 02/18/18 20:30 Blood Peripheral Aerobic Blood Culture - Preliminary NO GROWTH IN 1 DAY Resulted 02/18/18 20:30 Blood Peripheral Anaerobic Blood Culture - Preliminary NO GROWTH IN 1 DAY Resulted 02/18/18 21:30 Other Herpes Simplex Virus Culture Pending Received Physical Exam GENERAL: This is a well-nourished, well-developed patient, in no apparent distress. multiple tattoos SKIN: Herpes zoster lesion right groin lower abdomen HEAD: Atraumatic. Normocephalic. No temporal or scalp tenderness. EYES: Pupils equal round and reactive. Extraocular motions intact. No scleral icterus. No injection or drainage. ENT: Nose without bleeding, purulent drainage or septal hematoma. Throat without erythema, tonsillar hypertrophy or exudate. Uvula midline. Airway patent. NECK: Trachea midline. No JVD or lymphadenopathy. Supple, nontender, no meningeal signs. CARDIOVASCULAR: Regular rate and rhythm without murmurs, gallops, or rubs. RESPIRATORY: Clear to auscultation. Breath sounds equal bilaterally. No wheezes , rales, or rhonchi. GASTROINTESTINAL: Abdomen soft, non-tender, nondistended. No hepato-splenomegaly , or palpable masses. No guarding. rash over right abd and trunk painful. no draiange MUSCULOSKELETAL: Extremities without clubbing, cyanosis, or edema. No joint tenderness, effusion, or edema noted. No calf tenderness. Negative Homans sign bilaterally. NEUROLOGICAL: Awake and alert. Cranial nerves II through XII intact. Motor and sensory grossly within normal limits. Five out of 5 muscle strength in all muscle groups. Normal speec Assessment & Plan Diagnosis: (1) Herpes zoster infection ICD Codes: B02.9 - Zoster without complications Status: Acute Plan: Continue IV Acyclovir Will add Gabapentin for pain control (2) HIV (human immunodeficiency virus infection) ICD Codes: Z21 - HIV (human immunodeficiency virus infection) Status: Chronic Plan: Follow CD4 counts Problem Qualifiers (1) Herpes zoster infection: Qualified Codes: B02.8 - Zoster with other complications Ellen Damon MD February 20, 2018 08:33
[2018-02-20] MEDS: GABAPENTIN 300 MG CAP PO SCH ×2 (08:55→12:21)
[2018-02-20] MEDS: SODIUM CHLORIDE 0.9% FLUSH 10 ML FLUSH IV FLUSH SCH (08:56)
[2018-02-20] MEDS ORDERED: SULFAMETHOXAZOLE-TRIMETHOPRIM DS 800-160 MG TAB PO SCH (09:00)
[2018-02-20] MEDS ORDERED: PREG300 PO (11:38)
[2018-02-20] MEDS ORDERED: ACYC800T PO (11:38)
[2018-02-20] MEDS ORDERED: TRAM50TA PO (11:38)
--- NOTE | 2018-02-20 11:39 | HHI.DCPOC ---
Discharge Care Plan Diagnosis: (1) Herpes zoster infection (2) Shingles Goals to Promote Your Health * To prevent worsening of your condition and complications * To maintain your health at the optimal level Directions to Meet Your Goals Take your medications as prescribed Follow your dietary instruction Follow activity as directed Keep your appointments as scheduled Take your immunizations and boosters as scheduled If your symptoms worsen call your PCP, if no PCP go to Urgent Care Center or Emergency Room Smoking is Dangerous to Your Health. Avoid second hand smoke Call the 24-hour hour crisis hotline for domestic abuse at Kim Cruz MD February 20, 2018 11:39
--- NOTE | 2018-02-20 11:41 | HHI.DS ---
Discharge Summary Admission Date Feb 18, 2018 at 22:14 Discharge Date: February 20, 2018 Admitting Diagnosis Disseminated varicella. Shingles. (1) Shingles ICD Code: B02.9 - Zoster without complications Status: Acute (2) HIV (human immunodeficiency virus infection) ICD Code: Z21 - HIV (human immunodeficiency virus infection) Status: Chronic Procedures None Brief History - From Admission This patient is a 22-year-old gentleman with a limited follow-up due to nonadherence and who is also HIV positive. He has 3 or 4 days of right flank severe pain with associated rash. It is a vesicular rash appearing on the right L1 -L 4 dermatomes. The pain is severe. Is associated with cough. Patient notes no previous episodes. He does have a 1-year-old child at home who is not sick. Recently he did attend a cruise going [facility]. He was on isolation and that cruise after the cruise ship doctor examined him. CBC/BMP: 02/19/18 0532 02/19/18 0532 Significant Findings Laboratory Tests Test 02/18/18 20:35 02/18/18 23:25 02/19/18 05:32 White Blood Count 3.2 TH/MM3 (4.0-11.0) 2.5 TH/MM3 (4.0-11.0) Monocytes (%) (Auto) 11.2 % (0.0-8.0) 10.1 % (0.0-8.0) Lymphocytes # (Auto) 0.8 TH/MM3 (1.0-4.8) Total Protein 8.4 GM/DL (6.4-8.2) Red Blood Count 4.21 MIL/MM3 (4.50-5.90) Hemoglobin 12.2 GM/DL (13.0-17.0) Hematocrit 36.3 % (39.0-51.0) Platelet Count 132 TH/MM3 (150-450) Neutrophils # (Auto) 1.1 TH/MM3 (1.8-7.7) Albumin 3.0 GM/DL (3.4-5.0) PE at Discharge Shingles rash right L1 through L4 GENERAL: This is a well-nourished, well-developed patient, in no apparent distress. CARDIOVASCULAR: Regular rate and rhythm without murmurs, gallops, or rubs. RESPIRATORY: Clear to auscultation. Breath sounds equal bilaterally. No wheezes , rales, or rhonchi. GASTROINTESTINAL: Abdomen soft, non-tender, nondistended. Normal active bowel sounds MUSCULOSKELETAL: Extremities without clubbing, cyanosis, or edema. NEURO: Alert & Oriented x4 to person, place, time, situation. Moves all ext x4 Pt update on day of discharge Patient seen today in follow-up for shingles. Pain is better controlled. Discharge plans discussed with patient and ID team. Serology is still pending and patient is instructed to continue with outpatient follow-up Hospital Course Patient is a 22-year-old gentleman with HIV and nonadherence to medical treatment. Patient does come in with shingles on the right L1 through 4. His pain was very intense and he did require some narcotics for pain. He was seen by infectious disease due to his underlying immunocompromised status. Adherence to medical treatment plans and options for therapy for HIV are reinforced with the patient through myself, infectious disease team and case management. Serology is pending at the time of discharge and the patient has agreed to follow-up for further results Pt Condition on Discharge: Good Discharge Disposition: Discharge Home Discharge Time: <= 30 minutes Discharge Instructions DIET: Follow Instructions for: As Tolerated, No Restrictions Activities you can perform: Regular-No Restrictions Follow up Referrals: PCP Follow-up with [facility] New Medications: Acyclovir (Acyclovir) 800 Mg Tab 800 MG PO 5 TIMES A DAY for Mgmt Viral Infection for 7 Days, TAB 0 Refills Pregabalin (Lyrica) 300 Mg Cap 300 MG PO BID for Pain Management, #60 CAP 0 Refills Tramadol (Tramadol) 50 Mg Tab 50 MG PO Q8H PRN for PAIN, #10 TAB 0 Refills Continued Medications: Phenazopyridine (Pyridium) 100 Mg Tab 200 MG PO Q8H PRN for DYSURIA, #20 TAB 0 Refills Prochlorperazine Maleate (Prochlorperazine Maleate) 10 Mg Tab 10 MG PO Q6H PRN for NAUSEA OR VOMITING, #21 TAB 0 Refills Discontinued Medications: Famciclovir (Famciclovir) 500 Mg Tab 500 MG PO TID for Mgmt Viral Infection for 10 Days, TAB 0 Refills Ibuprofen (Ibuprofen) 800 Mg Tab 800 MG PO TID for Arthritis Pain, #30 TAB 0 Refills Oxycodone-Acetaminophen (Percocet) 5-325 mg Tab 1 TAB PO Q4H PRN for PAIN, #12 TAB 0 Refills Oxycodone-Acetaminophen (Percocet) 7.5-325 mg Tab 1 TAB PO Q4H PRN for PAIN, #15 TAB 0 Refills Kim Cruz MD February 20, 2018 11:41
[2018-02-20 12:00] VITALS: BP 133/62; PULSE 72; RESP 20; TEMP 97.1; O2SAT 98
[2018-02-22 03:50] LABS: VARICELLA ZOSTER AB IGM 0.83 (NEGATIVE)
[2018-02-22 19:52] LABS: VZV PCR RESULT >2000000 (<500 copies)
== END 2018-02-20 13:25 | disposition home or self-care (01) ==
LOC: PHED 19:00 → PHEDA 22:14 → PH3A 23:37
PROVIDERS: ADMIT Hospitalist; ATTEND Hospitalist
DX: B02.7 Disseminated zoster (principal); B20 Human immunodeficiency virus [HIV] disease; B01.9 Varicella without complication; J02.9 Acute pharyngitis, unspecified; R05 Cough; I25.10 Atherosclerotic heart disease of native coronary artery without angina pectoris; F41.9 Anxiety disorder, unspecified; F32.9 Major depressive disorder, single episode, unspecified; F90.9 Attention-deficit hyperactivity disorder, unspecified type; F17.200 Nicotine dependence, unspecified, uncomplicated
CPT/HCPCS: 80053; 85025; 86355; 86357; 86359; 86360; 86787; 87040; 87255; 87799; 96361; 96365; 96366; 96375; 96376; 99285; G0378; J0133; J1885; J2270; J2405; J7030

== ENCOUNTER 2018-03-10 10:05 | Emergency (ER) | payer MEDICAID ==
[~2018-03-10] VITALS: Ht 188 cm; Wt 76.9 kg
[~2018-03-10 10:05] MED LIST changes: +ACYC800T PO; -FAMC500T PO; -IBUP1TAB7 PO; -PERC5TAB12 PO; -PERC7.5T13 PO; +PREG300 PO; +TRAM50TA PO
[2018-03-10 10:10] VITALS: BP 126/70; PULSE 120; RESP 16; TEMP 98.1; O2SAT 97
[2018-03-10] MEDS ORDERED: TRIMEQ (10:28)
--- NOTE | 2018-03-10 10:59 | PD ---
HPI Chief Complaint: Laceration/Skin Injury Time Seen by Provider: 10:46 Travel History International Travel<30 days: No Contact w/Intl Traveler<30days: No Traveled to known affect area: No History of Present Illness HPI 22-year-old male with lacerations and abrasions to right forearm caused by oyster beds. He slipped off his boat falling onto shallow area of water injuring the arm. He denies altered sensation or weakness of the extremity. He has multiple abrasions/lacerations to the forearm. Symptom severity is moderate. Tetanus immunization is up-to-date. Injury occurred 1 hour prior to arrival [facility] Past Medical History ADHD: Yes (YOUNGER AGE) Arthritis: No Anxiety: Yes Depression: Yes Heart Rhythm Problems: Yes (HEART PROBLEMS AN INFANT, HEART MURMUR) Cancer: Yes (STATES NOT SURE YET WHAT TYPE,RECENT DX) Cardiovascular Problems: No Cerebrovascular Accident: No Coronary Artery Disease: Yes (" heart problems as an . Heart Murmur. ) Diabetes: No Diminished Hearing: No Endocrine: No Genitourinary: No Immune Disorder: Yes (HIV) Musculoskeletal: Yes (r/t fxs) Neurologic: Yes ("nerve disorder") Psychiatric: Yes (ADJUSTMENT DISORDER) Reproductive: No Respiratory: No Immunizations Current: Yes (school shots utd.) Migraines: No Pneumonia: Yes Seizures: No Thyroid Disease: No Past Surgical History Abdominal Surgery: No Cardiac Surgery: No Ear Surgery: No Endocrine Surgery: No Eye Surgery: No Genitourinary Surgery: No Gynecologic Surgery: No Oral Surgery: No Thoracic Surgery: No Other Surgery: Yes Social History Alcohol Use: No Tobacco Use: Yes (1 PPD) Substance Use: No (DENIES CURRENT ON 02/18/18, DOCUMENTED PRIOR HX ) Allergies-Medications (Allergen,Severity, Reaction): Coded Allergies: buspirone (Verified Allergy, Severe, Anaphylaxis, 03/10/18) HEART RACES, TURNS BLUE, PASSES OUT iodine (Verified Allergy, Severe, RASH/WELTS/ANYPHYLAXIS, 03/10/18) lorazepam (Verified Allergy, Severe, Anaphylaxis, 03/10/18) HEART RACES, TURNS BLUE, PASSES OUT potassium iodide (Verified Allergy, Severe, RASH/WELTS/ANYPHYLAXIS, ) povidone-iodine (Verified Allergy, Severe, RASH/WELTS/ANYPHYLAXIS, 03/10/18 ) sodium iodide (Verified Allergy, Severe, RASH/WELTS/ANYPHYLAXIS, 03/10/18) sodium iodide (Verified Allergy, Severe, RASH/WELTS/ANYPHYLAXIS, 03/10/18) Reported Meds & Prescriptions Reported Meds & Active Scripts Active Keflex (Cephalexin) 500 Mg Cap 500 Mg PO Q6H 10 Days Doxycycline Hyclate 100 Mg Cap 100 Mg PO BID Reported [Trimeq] Unknown Dose Review of Systems Except as stated in HPI: all other systems reviewed are Neg General / Constitutional: No: Fever Physical Exam Narrative GENERAL: Alert and well-appearing 22-year-old male SKIN: Warm and dry. Multiple abrasions/lacerations to the right forearm. HEAD: Normocephalic. EYES: No scleral icterus. No injection or drainage. NECK: Supple, trachea midline. No midline spine tenderness CARDIOVASCULAR: Regular rate and rhythm without murmurs, gallops, or rubs. RESPIRATORY: Breath sounds equal bilaterally. No accessory muscle use. GASTROINTESTINAL: Abdomen soft, non-tender, nondistended. MUSCULOSKELETAL: No cyanosis, or edema. Right upper extremity:Multiple abrasions/lacerations to the right forearm. No bony tenderness. Full range of motion of the shoulder, elbow, wrist, fingers. Palpable distal pulses. Normal strength and sensation. Brisk cap refill Data Data Last Documented VS Vital Signs Date Time Temp Pulse Resp B/P (MAP) Pulse Ox O2 Delivery O2 Flow Rate FiO2 03/10/18 10:10 98.1 120 16 126/70 (88) 97 Orders Orders Forearm (2vws) (03/10/18 ) Ibuprofen (Motrin) (03/10/18 11:45) MDM Medical Decision Making Medical Screen Exam Complete: Yes Emergency Medical Condition: Yes Differential Diagnosis Laceration, abrasion, tendon injury, foreign body Narrative Course 22-year-old male with multiple abrasions/lacerations to the forearm caused by oyster bed. X-rays negative for fracture foreign body. Wounds were extensively cleansed. Patient started on antibiotics. He is instructed to have strict follow-up in 2 days with his primary doctor for recheck. Diagnosis Primary Impression: Laceration Referrals: Primary Care Physician Additional Instructions: Antibiotics as directed. Wash the area daily with soap and water. Apply thin layer of antibiotic ointment and cover with a dry dressing. Scripts Ketorolac (Ketorolac) 10 Mg Tab 10 MG PO TID for Pain Management, #12 TAB 0 Refills Prov: Ella Harrell 03/10/18 Cephalexin (Keflex) 500 Mg Cap 500 MG PO Q6H for Infection for 10 Days, #40 CAP 0 Refills Prov: Ella Harrell 03/10/18 Doxycycline Hyclate (Doxycycline Hyclate) 100 Mg Cap 100 MG PO BID for Infection, #20 CAP 0 Refills Prov: Ella Harrell 03/10/18 Disposition: 01 DISCHARGE HOME Condition: Stable Ella Harrell March 10, 2018 10:59
--- NOTE | 2018-03-10 11:26 | RADRPT ---
EXAM DATE/TIME: 03/10/2018 11:03 [place] COMPARISON: No previous studies available for comparison. INDICATIONS : Fell into oysters, has multiple lacerations to right forearm and wrist MEDICAL HISTORY : None. SURGICAL HISTORY : None. ENCOUNTER: Initial ACUITY: 1 day PAIN SCORE: 4/10 LOCATION: Right forearm FINDINGS: Two view examination of the right forearm demonstrates no evidence of fracture or dislocation. Bony mineralization is normal. The soft tissue structures are intact. No radiopaque foreign bodies seen. CONCLUSION: 1. The osseous structures are intact. 2. No radiopaque foreign body seen in the soft tissues. Chip Mcgill MD on March 10, 2018 at 11:24 Board Certified Radiologist. This report was verified electronically.
[2018-03-10] MEDS ORDERED: IBUPROFEN 800 MG TAB PO ONE (11:45)
[2018-03-10] MEDS ORDERED: DOXY100C PO (11:58)
[2018-03-10] MEDS ORDERED: CEPH-460 PO (11:58)
[2018-03-10] MEDS ORDERED: KETO10 PO (12:15)
== END 2018-03-10 12:30 | disposition home or self-care (01) ==
LOC: PHED 10:05 → PHEFT 12:30
DX: S51.811A Laceration without foreign body of right forearm, initial encounter (principal); V94.0XXA Hitting object or bottom of body of water due to fall from watercraft, initial encounter; F17.200 Nicotine dependence, unspecified, uncomplicated
CPT/HCPCS: 73090; 99283

== ENCOUNTER 2018-03-12 22:45 | Emergency (ER) | payer MEDICAID ==
[~2018-03-12] VITALS: Ht 188 cm; Wt 81.5 kg
[~2018-03-12 22:45] MED LIST changes: -ACYC800T PO; +CEPH-460 PO; +DOXY100C PO; +KETO10 PO; -PHEN0.4T PO; -PREG300 PO; -PROC10TA PO; -TRAM50TA PO; +TRIMEQ
[2018-03-12 22:54] VITALS: BP 113/64; PULSE 124; RESP 18; TEMP 102.8; O2SAT 100
[2018-03-12 23:06] VITALS: BP 131/69; PULSE 100; RESP 18; O2SAT 99
[2018-03-12] MEDS ORDERED: IBUPROFEN 600 MG TAB PO ONE (23:30)
[2018-03-12] MEDS ORDERED: ALUMINUM/MAGNESIUM/SIMETH 30 ML CUP PO ONE (23:30)
[2018-03-12] MEDS ORDERED: LIDOCAINE VISCOUS 2% SOLN 15 ML UDC PO ONE (23:30)
[2018-03-12] MEDS ORDERED: ACETAMINOPHEN 500 MG CPLT PO ONE (23:30)
[2018-03-12] MEDS ORDERED: cefTRIAXone INJ 1,000 MG in SODIUM CHLORIDE 0.9% INJ 100 ML IV ONE (23:30)
--- NOTE | 2018-03-12 23:45 | PD ---
HPI Chief Complaint: Fever Time Seen by Provider: 23:06 Travel History International Travel<30 days: Yes Contact w/Intl Traveler<30days: Yes Name of Country Traveled to: [facility] Traveled to known affect area: No History of Present Illness HPI This patient complains of fever and sore throat. Duration is 2 days. Severity is moderate. He has pain when swallowing. He is HIV and has been on antivirals for 1 month. He is currently taking Keflex and doxycycline and on day 2 of that to prevent infection from right forearm lacerations on an oyster bed. No cough or vomiting or diarrhea or abdominal pain or shortness of breath. He denies headache. No alleviating factors. No exacerbating factors. PFSH Past Medical History ADHD: Yes (YOUNGER AGE) Arthritis: No Anxiety: Yes Depression: Yes Heart Rhythm Problems: Yes (HEART PROBLEMS AN INFANT, HEART MURMUR) Cancer: Yes (STATES NOT SURE YET WHAT TYPE,RECENT DX) Cardiovascular Problems: No Cerebrovascular Accident: No Coronary Artery Disease: Yes (" heart problems as an . Heart Murmur. ) Diabetes: No Diminished Hearing: No Endocrine: No Genitourinary: No Immune Disorder: Yes (HIV) Musculoskeletal: Yes (r/t fxs) Neurologic: Yes ("nerve disorder") Psychiatric: Yes (ADJUSTMENT DISORDER) Reproductive: No Respiratory: No Immunizations Current: Yes (school shots utd.) Migraines: No Pneumonia: Yes Seizures: No Shingles: Yes Thyroid Disease: No Tetanus Vaccination: < 5 Years Influenza Vaccination: No Past Surgical History Abdominal Surgery: No Cardiac Surgery: No Ear Surgery: No Endocrine Surgery: No Eye Surgery: No Genitourinary Surgery: No Gynecologic Surgery: No Oral Surgery: No Thoracic Surgery: No Other Surgery: Yes Social History Alcohol Use: No Tobacco Use: Yes (1 PPD) Substance Use: No (DENIES CURRENT ON 02/18/18, DOCUMENTED PRIOR HX ) Allergies-Medications (Allergen,Severity, Reaction): Coded Allergies: buspirone (Verified Allergy, Severe, Anaphylaxis, 03/12/18) HEART RACES, TURNS BLUE, PASSES OUT iodine (Verified Allergy, Severe, RASH/WELTS/ANYPHYLAXIS, 03/12/18) lorazepam (Verified Allergy, Severe, Anaphylaxis, 03/12/18) HEART RACES, TURNS BLUE, PASSES OUT potassium iodide (Verified Allergy, Severe, RASH/WELTS/ANYPHYLAXIS, ) povidone-iodine (Verified Allergy, Severe, RASH/WELTS/ANYPHYLAXIS, 03/12/18 ) sodium iodide (Verified Allergy, Severe, RASH/WELTS/ANYPHYLAXIS, 03/12/18) sodium iodide (Verified Allergy, Severe, RASH/WELTS/ANYPHYLAXIS, 03/12/18) Reported Meds & Prescriptions Reported Meds & Active Scripts Active Ketorolac (Ketorolac Tromethamine) 10 Mg Tab 10 Mg PO TID Keflex (Cephalexin) 500 Mg Cap 500 Mg PO Q6H 10 Days Doxycycline Hyclate 100 Mg Cap 100 Mg PO BID Reported [Trimeq] Unknown Dose Review of Systems General / Constitutional: Positive: Fever Eyes: No: Visual changes HENT: Positive: Sore Throat, No: Headaches Cardiovascular: No: Chest Pain or Discomfort Respiratory: No: Shortness of Breath Gastrointestinal: No: Abdominal Pain Genitourinary: No: Dysuria Musculoskeletal: No: Pain Skin: No Rash Neurologic: No: Weakness Psychiatric: No: Depression Endocrine: No: Polydipsia Hematologic/Lymphatic: No: Easy Bruising Physical Exam Narrative GENERAL: Well-nourished, well-developed patient in no apparent distress. SKIN: Focused skin assessment reveals no rash and nodules. Skin is Warm and dry. Patient has some shallow scratches and abrasions to the right forearm without any sign of infection on any of them HEAD: Atraumatic. Normocephalic. EYES: Pupils equal and round. No scleral icterus. No injection or drainage. ENT: No nasal bleeding or discharge. Mucous membranes pink and moist. Throat is erythematous but no exudate NECK: Trachea midline. No JVD. No meningeal signs CARDIOVASCULAR: Regular rate and rhythm. No murmur appreciated. RESPIRATORY: No accessory muscle use. Clear to auscultation. Breath sounds equal bilaterally. GASTROINTESTINAL: Abdomen soft, non-tender, nondistended. Hepatic and splenic margins not palpable. MUSCULOSKELETAL: No obvious deformities. No clubbing. No cyanosis. No edema. NEUROLOGICAL: Awake and alert. No obvious cranial nerve deficits. Motor grossly within normal limits. Normal speech. PSYCHIATRIC: Appropriate mood and affect; insight and judgment normal. Data Data Last Documented VS Vital Signs Date Time Temp Pulse Resp B/P (MAP) Pulse Ox O2 Delivery O2 Flow Rate FiO2 03/12/18 23:09 Room Air 03/12/18 23:06 100 18 131/69 (89) 99 03/12/18 22:54 102.8 Orders Orders Lidocaine 2% Viscous (Xylocaine 2% Visco (03/12/18 23:30) Al-Mag Hy-Si 40-40-4 Mg/Ml Liq (Mag-Al P (03/12/18 23:30) Acetaminophen (Tylenol) (03/12/18 23:30) Ibuprofen (Motrin) (03/12/18 23:30) Iv Access Insert/Monitor (03/12/18 23:19) Complete Blood Count With Diff (03/12/18 23:19) Basic Metabolic Panel (Bmp) (03/12/18 23:19) Urinalysis - C+S If Indicated (03/12/18 23:19) Blood Culture (03/12/18 23:19) Ceftriaxone Inj (Rocephin Inj) (03/12/18 23:30) Group A Rapid Strep Screen (03/12/18 23:32) Strep Culture (Group A) (03/12/18 23:40) Labs Laboratory Tests Test 03/12/18 23:40 White Blood Count 8.8 TH/MM3 Red Blood Count 4.60 MIL/MM3 Hemoglobin 13.6 GM/DL Hematocrit 39.6 % Mean Corpuscular Volume 86.1 FL Mean Corpuscular Hemoglobin 29.5 PG Mean Corpuscular Hemoglobin Concent 34.2 % Red Cell Distribution Width 13.1 % Platelet Count 163 TH/MM3 Mean Platelet Volume 8.2 FL Neutrophils (%) (Auto) 84.8 % Lymphocytes (%) (Auto) 10.7 % Monocytes (%) (Auto) 4.0 % Eosinophils (%) (Auto) 0.3 % Basophils (%) (Auto) 0.2 % Neutrophils # (Auto) 7.5 TH/MM3 Lymphocytes # (Auto) 0.9 TH/MM3 Monocytes # (Auto) 0.4 TH/MM3 Eosinophils # (Auto) 0.0 TH/MM3 Basophils # (Auto) 0.0 TH/MM3 CBC Comment DIFF FINAL Differential Comment Urine Color YELLOW Urine Turbidity CLEAR Urine pH 8.0 Urine Specific Dequincy 1.010 Urine Protein NEG mg/dL Urine Glucose (UA) NEG mg/dL Urine Ketones NEG mg/dL Urine Occult Blood TRACE Urine Nitrite NEG Urine Bilirubin NEG Urine Urobilinogen 0.2 MG/DL Urine Leukocyte Esterase NEG Urine RBC 4-9 /hpf Urine WBC 0-2 /hpf Urine Squamous Epithelial Cells 0-5 /hpf Urine Bacteria NONE /hpf Microscopic Urinalysis Comment CULT NOT INDICATED Blood Urea Nitrogen 10 MG/DL Creatinine 0.95 MG/DL Random Glucose 108 MG/DL Calcium Level 9.2 MG/DL Sodium Level 135 MEQ/L Potassium Level 3.8 MEQ/L Chloride Level 102 MEQ/L Carbon Dioxide Level 28.6 MEQ/L Anion Gap 4 MEQ/L Estimat Glomerular Filtration Rate 97 ML/MIN MDM Medical Decision Making Medical Screen Exam Complete: Yes Emergency Medical Condition: Yes Medical Record Reviewed: Yes Differential Diagnosis Pharyngitis, peritonsillar abscess, URI, pneumonia Narrative Course I have reviewed the patient's electronic medical record. Reviewed his visit from 2 days ago as well as his discharge summary from his admission 1 month ago IV placed in 2 sets of blood cultures obtained I gave him a dose of IV Rocephin I did a rapid strep screen which is negative CBC is normal Metabolic profile is normal Urinalysis is clean I gave him a dose of Maalox and lidocaine for symptom relief as well as Tylenol Motrin for fever Patient also notes that his shingles rash is coming back. That did coincide with fever recurrence I am refilling his acyclovir He will stop the Keflex and substitute Augmentin and continue doxycycline I wrote some Magic mouthwash for symptom relief He will call his primary physician tomorrow for follow-up and return if he worsens Diagnosis Primary Impression: Acute febrile illness Additional Impressions: Pharyngitis, acute Qualified Codes: J02.9 - Acute pharyngitis, unspecified Herpes zoster infection Qualified Codes: B02.8 - Zoster with other complications HIV disease Additional Instructions: The patient was advised to follow up with their physician and return if they worsen. The patient was warned about potential sedation for the medications they will receive on prescription. Stop Keflex Med/Other Pt SpecificInfo: Prescription(s) given Scripts Zplbbupn-Piihvfttasqhidh-Bugpvlwnc Liq (Magic Mouthwash Adult Liq) 120 Ml Susp 10 ML SWISH-SWAL ACHS for Mouth sores, #120 ML 0 Refills Each 5mL contains: Nystatin 200,000units, Diphenhydramine 4.25mg, Viscous Lidocaine 10mg, Key syrup 0.8 mL Prov: Tye Hernandez MD 03/13/18 Amoxicillin-Clavulanate (Augmentin) 875-125 Mg Tab 1 TAB PO BID for Infection, #14 TAB 0 Refills Prov: Tye Hernandez MD 03/13/18 Acyclovir (Acyclovir) 800 Mg Tab 800 MG PO 5 TIMES A DAY for Mgmt Viral Infection for 7 Days, TAB 0 Refills Prov: Tye Hernandez MD 03/13/18 Disposition: 01 DISCHARGE HOME Condition: Stable Tye Hernandez MD March 12, 2018 23:45
[2018-03-12 23:50] LABS: BILIRUBIN, URINE NEG (NEG); BLOOD, URINE TRACE (NEG); GLUCOSE,URINE NEG (NEG); KETONE, URINE NEG (NEG); NITRITE,URINE NEG (NEG); URINE COLOR YELLOW (YELLW/STRAW); URINE LEUKOCYTE ESTERASE NEG (NEG)
[2018-03-12 23:52] LABS: AUTOMATED NEUTROPHIL # 7.5 TH/MM3 (1.8-7.7); BASOPHIL % 0.2 % (0.0-2.0); EOSINOPHIL % 0.3 % (0.0-4.0); HEMATOCRIT 39.6 % (39.0-51.0); HEMOGLOBIN 13.6 GM/DL (13.0-17.0); LYMPH % 10.7 % (9.0-44.0); LYMPHOCYTE # 0.9 TH/MM3 (1.0-4.8); MEAN CELL VOLUME 86.1 FL (80.0-100.0); MEAN CORPUSCULAR HEMOGLOBIN 29.5 PG (27.0-34.0); MEAN CORPUSCULAR HGB CONC 34.2 % (32.0-36.0); MEAN PLATELET VOLUME 8.2 FL (7.0-11.0); MONOCYTE # 0.4 TH/MM3 (0-0.9); NEUT % 84.8 % (16.0-70.0); PLATELET COUNT 163 TH/MM3 (150-450); RED CELL DISTRIBUTION WIDTH 13.1 % (11.6-17.2); WHITE BLOOD COUNT 8.8 TH/MM3 (4.0-11.0)
[2018-03-12 23:59] LABS: SQUAMOUS EPITHELIAL CELL URINE 0-5 /hpf (0-5); WBC, URINE 0-2 /hpf (0-5)
[2018-03-13 00:02] LABS: CALCIUM 9.2 MG/DL (8.5-10.1)
[2018-03-13 00:03] LABS: BICARBONATE 28.6 MEQ/L (21.0-32.0)
[2018-03-13 00:06] LABS: CREATININE 0.95 MG/DL (0.60-1.30)
[2018-03-13] MEDS ORDERED: ACYC800T PO (00:15)
[2018-03-13] MEDS ORDERED: AUGM875T3 PO (00:15)
[2018-03-13] MEDS ORDERED: MAGICADU2 SWISH-SWAL (00:15)
[2018-03-13 00:40] VITALS: BP 140/66; TEMP 100
--- NOTE | 2018-03-13 01:06 | RADRPT ---
EXAM DATE: 03/13/2018 12:59 AM EDT AGE/SEX: 22 years / Male INDICATIONS: Fever. CLINICAL DATA: This is the patient's initial encounter. Patient reports that signs and symptoms have been present for 1 day and indicates a pain score of 3/10. MEDICAL/SURGICAL HISTORY: None. None. COMPARISON: [facility] [place], CHEST SINGLE AP, 08/14/2017. . FINDINGS: A single AP view of the chest demonstrates the lungs to be symmetrically aerated without evidence of mass, infiltrate or effusion. The cardiomediastinal contours are unremarkable. Osseous structures a re intact. CONCLUSION: No acute cardiopulmonary disease. There is no evidence of pneumonia. Electronically signed by: Jones Holt MD 03/13/2018 1:05 AM EDT
== END 2018-03-13 00:46 | disposition home or self-care (01) ==
LOC: PHED 22:45
DX: R50.9 Fever, unspecified (principal); B02.9 Zoster without complications; J02.9 Acute pharyngitis, unspecified; Z21 Asymptomatic human immunodeficiency virus [HIV] infection status; F17.200 Nicotine dependence, unspecified, uncomplicated
CPT/HCPCS: 71045; 80048; 81001; 85025; 87040; 87081; 87880; 96365; 99284; J0696